=== PATIENT | male | born 1955 | race African-American/Black ===

== ENCOUNTER 2017-01-29 14:18 | Inpatient (IN) ==
[2017-01-29] MEDS ORDERED: LEVOFLOXACIN INJ 500 MG in PREMIX 1 EACH IV STA (14:46)
[2017-01-29] MEDS ORDERED: ALBUTEROL/IPRATROPIUM 3 ML NEB RESP TX STA (14:46)
[2017-01-29] MEDS ORDERED: methylPREDNISolone SOD SUC 125 MG/2 ML VIAL IV STA (14:46)
[2017-01-29] MEDS ORDERED: methylPREDNISolone SOD SUC 125 MG/2 ML VIAL ONE ×2 (14:58→15:01)
[2017-01-29] MEDS ORDERED: LEVOFLOXACIN INJ 100 ML IV ONE (14:58)
[2017-01-29 15:16] LABS: Basophils # 0.1 10*3/uL (0.0-0.2); Basophils % 0.5 % (0.0-0.8); Eosinophils # 0.2 10*3/uL (0.0-0.87); Eosinophils % 1.6 % (0.00-10.9); Hematocrit 37.9 VOL% (42.0-52.0); Hemoglobin 12.3 GM/DL (14.0-18.0); Immature Granulocytes % 0.4 %; Immature Granulocytes Absolute 0.05 #; Lymphocytes # 1.7 10*3/uL (1.4-4.0); Lymphocytes % 13.6 % (21.2-54.2); Mean Corpuscular HGB Conc 32.5 GM/DL (32-36); Mean Corpuscular Hemoglobin 28 PG (27-34); Mean Corpuscular Volume 84.6 FL (87-102); Mean Platelet Volume 12.7 FL (9.6-12.0); Monocytes # 1.8 10*3/uL (0.11-0.8); Neutrophils # 8.4 10*3/uL (1.4-7.4); Neutrophils % 68.9 % (38.7-73.9); Platelet Count 191 T/CUMM (130-400); Red Blood Count 4.48 MC/CUMM (3.8-5.5); Red Cell Distribution Width 13.4 % (9.3-17.3); White Blood Count 12.2 T/CUMM (4-12)
[2017-01-29] MEDS ORDERED: FUROSEMIDE 40 MG/4 ML VIAL IV STA (15:24)
[2017-01-29] MEDS ORDERED: FUROSEMIDE 100 MG/10 ML VIAL ONE (15:30)
--- NOTE | 2017-01-29 15:35 | XRay Report ---
Single view of the chest. Indication: Shortness of breath. Comparison: April 10, 2010. The heart is enlarged, increased from the previous. Large multiseptated bullous area in the right lung apex, essentially stable. Left superior hilar mass, increased in size, now proximally 4 cm. The interstitial markings are prominent, worsened from the previous. There is alveolar infiltrate present now in each lung base, worse on the right. There is a right-sided pleural effusion. Impression: 1. Chronic lung changes. 2. Increasing size of a left suprahilar mass. 3. Superimposed pneumonia at both lung bases, worse on the right, with associated pleural effusion. 4. Interval increase in heart size. PROCEDURE INTERPRETED AT [facility] DEPARTMENT OF RADIOLOGY Final Report Signed by: Dr. Coco Greenwood
[2017-01-29 15:43] LABS: Albumin 3.2 G/DL (3.4-5.0); Bilirubin,Total 1.1 MG/DL (0.2-1.0); Calcium 8.6 MG/DL (8.5-10.1); Magnesium 2.4 MG/DL (1.8-2.4); Osmolality,Calculated 283.3 MOS/KG (273-304); Potassium 2.9 MMOL/L (3.5-5.1); Total Protein 7.9 G/DL (6.4-8.3); Troponin I Only 0.023 NG/ML (0.00-0.045)
[2017-01-29] MEDS ORDERED: POTASSIUM CHLORIDE 20 MEQ TABLET PO STA (16:00)
--- NOTE | 2017-01-29 16:00 | Emergency Department Note ---
IMyra Emily, am scribing for, and in the presence of, Honorio Strauss MD 14:50. Carlos A Garcia Phillip K, MD, personally performed the services described in this documentation, ascribed by Perla Renteria in my presence, and it is both accurate and complete . Arrival - Arrival ED Nursing Triage Note: sob and cough for 5 days. +productive with white sputum. Mode of Arrival: Wheelchair Limitations: No Limitations Source: Patient - History of Present Illness Onset (ago): day(s) Consistency: constant Severity: moderate Severity scale (1-10): 7 Quality: fullness <Honorio Strauss - Last Filed: 01/29/17 16:01> <Sivakumar Mathis - Last Filed: 01/29/17 16:23> - Arrival Chief Complaint: Shortness of Breath Stated Complaint: trouble breathing Time Seen by Provider: 01/29/17 14:31 - History of Present Illness HPI Narrative: Pt is a 61 y/o male who came to ED with c/o SOB and productive cough that has been ongoing for 5 days. Pt has associated sxs of white sputum, fever, chills, diarrhea, orthopnea, MONET, and swelling in lower extremities, but denies chest pain. Pt sees ASSET PROTECTION LEAD at [facility]. PMHx of emphysema - COPD, obtructive sleep apnea. Pt states he stops what he's doing to regain breath, but denies usage of steroids or albuterol at home to relieve SOB. Pt has occasional drink but denies smoking. (Perla Renteria) Pt is a 61 y/o male who came to ED with c/o SOB and productive cough that has been ongoing for 5 days. Pt has associated sxs of white sputum, fever, chills, diarrhea, orthopnea, MONET, and swelling in lower extremities, but denies chest pain. Pt sees ASSET PROTECTION LEAD at [facility] in [place]. PMHx of emphysema - COPD, obtructive sleep apnea. Pt states he stops what he's doing to regain breath, but denies usage of steroids or albuterol at home to relieve SOB. Pt has occasional drink but denies smoking. (Honorio Strauss) Allergies/Adverse Reactions: Allergies Allergy/AdvReac Type Severity Reaction Status Date / Time No Known Allergies Allergy Unverified 01/29/17 14:25 Home Medications: Home Medications Medication Instructions Recorded Confirmed Type Cetirizine HCl [Cetirizine Tab] 10 mg PO DAILY 01/29/17 01/29/17 History Lisinopril 40 mg PO DAILY 01/29/17 01/29/17 History Metoprolol Tartrate Tab [Lopressor 50 mg PO BID 01/29/17 01/29/17 History Tab] Spironolactone 50 mg PO DAILY 01/29/17 01/29/17 History Thiamine HCl 100 mg PO DAILY 01/29/17 01/29/17 History amLODIPine [Norvasc] 10 mg PO DAILY 01/29/17 01/29/17 History Review of System - Review of System 12 point system: reviewed and no additional remarkable complaints except as stated - Review of System Constitutional: Present: chills, fever Head/Ears/Nose/Throat: Absent: nasal drainage, sore throat Respiratory: Present: cough (productive; white sputum), respiratory distress ( grunting), wheezing Cardiovascular: Present: dyspnea on exertion, orthopnea, edema. Absent: chest pain, syncope Gastrointestinal: Present: diarrhea. Absent: abdominal pain, nausea, vomiting Genitourinary male: Absent: dysuria Musculoskeletal: Absent: arm pain, back pain, leg pain, neck pain Skin: Absent: rash Neurological: Absent: headache Psychiatric: Absent: anxiety <Honorio Strauss - Last Filed: 01/29/17 16:01> Medical,Surgical,& Family Hx - Medical History Cardio: History of: Hypertension Respiratory: History of: COPD, Obstructive Sleep Apnea - Social History Smoking Status: Never smoker Frequency of Alcohol Use: None Type of Drug Use: None <Honorio Strauss - Last Filed: 01/29/17 16:01> Exam - General General appearance: alert, in distress (secondary to SOB) - Head Head exam: Present: atraumatic, normocephalic - Eye Eye exam: Present: PERRL, EOMI - ENT ENT exam: Present: mucous membranes moist. Absent: mucous membranes dry - Neck Neck exam: Present: full ROM, trachea midline. Absent: tenderness - Chest Chest inspection: Present: symmetric chest wall rise. Absent: tenderness - Respiratory Respiratory exam: Present: accessory muscle use (grunts taking each breath), rales (on left), respiratory distress, wheezes (diffuse expiratory wheezing in all mcdonald). Absent: normal lung sounds bilaterally - Cardiovascular Cardiovascular exam: Present: tachycardia, normal heart sounds - Abdominal Exam Abdominal exam: Present: soft. Absent: tenderness - Extremities Exam Extremities exam: Present: full ROM, pedal edema (+2 pitting bilaterally). Absent: tenderness - Back Exam Back exam: Present: full ROM. Absent: tenderness - Neurological Exam Neurological exam: Present: alert, oriented X3, CN II-XII intact. Absent: motor sensory deficit - Psychiatric Psychiatric exam: Present: normal affect, normal mood - Skin Skin exam: Present: warm, dry <Honorio Strauss - Last Filed: 01/29/17 16:01> Vital Signs: Vital Signs Temperature 99.2 F 01/29/17 15:24 Pulse Rate 99 H 01/29/17 15:30 Respiratory Rate 25 H 01/29/17 15:30 Blood Pressure 171/137 01/29/17 15:24 O2 Sat by Pulse Oximetry 97 01/29/17 15:30 Course <Honorio Strauss - Last Filed: 01/29/17 16:01> - Consultations Time: 16:15 <Sivakumar Mathis - Last Filed: 01/29/17 16:23> - Consultations Consultation #1: The patient will be admitted to the hospitalist service. (Sivakumar Mathis) Results - Labs CBC & BMP: 01/29/17 15:00 01/29/17 15:00 Lab Results: I have reviewed the patients labs - Diagnostic Findings Procedure: Chest x-ray: report reviewed by me (1. Chronic lung changes. 2. Increasing size of a left suprahilar mass. 3. Superimposed PNA at both lung bases, worse on the right, with associated pleural effusion. 4. Interval increase in heart size.) <Honorio Strauss - Last Filed: 01/29/17 16:01> - Labs CBC & BMP: 01/29/17 15:00 01/29/17 15:00 <Sivakumar Mathis - Last Filed: 01/29/17 16:23> - Labs Labs: Laboratory Tests 01/29/17 15:00 WBC 12.2 H RBC 4.48 Hgb 12.3 L Hct 37.9 L MCV 84.6 L Plt Count 191 MPV 12.7 H Lymph % (Auto) 13.6 L [place] % (Auto) 15.0 H Neut # (Auto) 8.4 H [place] # (Auto) 1.8 H Laboratory Tests 01/29/17 15:00 Sodium 141 Potassium 2.9 L Chloride 100 Carbon Dioxide 27 Anion Gap 16.9 H BUN 22 H Creatinine 1.70 H Glucose 107 H Total Bilirubin 1.10 H AST 38 H Albumin 3.2 L Globulin 4.7 H Albumin/Globulin Ratio 0.6 L (Perla Renteria) Laboratory Tests 01/29/17 15:00 WBC 12.2 H RBC 4.48 Hgb 12.3 L Hct 37.9 L MCV 84.6 L Plt Count 191 MPV 12.7 H Lymph % (Auto) 13.6 L [place] % (Auto) 15.0 H Neut # (Auto) 8.4 H [place] # (Auto) 1.8 H Laboratory Tests 01/29/17 15:00 Sodium 141 Potassium 2.9 L Chloride 100 Carbon Dioxide 27 Anion Gap 16.9 H BUN 22 H Creatinine 1.70 H Glucose 107 H Total Bilirubin 1.10 H AST 38 H Albumin 3.2 L Globulin 4.7 H Albumin/Globulin Ratio 0.6 L (Honorio Strauss) Disposition Case discussed with: patient <Honorio Strauss - Last Filed: 01/29/17 16:01> Time of Disposition: 16:15 <Sivakumar Mathis - Last Filed: 01/29/17 16:23> Clinical Impression: Acute exacerbation of chronic obstructive airways disease, Pneumonia, Possible congestive heart failure, Hypokalemia Disposition: Still a Patient Condition: Guarded
[2017-01-29] MEDS ORDERED: POTASSIUM CHLORIDE 20 MEQ TABLET PO ONE ×2 (16:13→17:00)
--- NOTE | 2017-01-29 17:19 | Hospitalist History & Physical ---
<Florence Watson - Last Filed: 01/29/17 17:14> Assessment and Plan (1) Acute exacerbation of chronic obstructive airways disease Status: Acute Assessment and plan: Admit to ICU for closer monitoring. IV steroids and breathing treatments ordered. Stat abgs. Current Visit: Yes (2) Hypokalemia Status: Acute Assessment and plan: K is 2.9. Potassium replacement. Recheck in am. Cardiac monitoring. Current Visit: Yes (3) Pneumonia Status: Acute Assessment and plan: CXR showed superimposed pneumonia. CXR also showed left superhilar mass. Follow up CT ordered. Pulm consult for assistance in care. IV antibiotics (Levaquin and Zosyn) ordered. Will continue to monitor. Current Visit: Yes History of Present Illness Chief complaint: shortness of breath History of present illness: Mr. Noe is a 61 year old black male with a history of htn, copd, BPH, and TYSON that presents to the ED today with complaints of shortness of breath and cough. Pt. states that this has been going on for the past 5 days. Pt. also reports fever, chills, dizziness, and swelling in lower extremities. Pt. denies chest pain. Pt. states that he has become significantly weaker with these symptoms. He says he sometimes has to lean over a chair to catch his breath. Pt. states that he is a former smoker. He stopped almost 30 yrs ago after having an XR performed that showed he had "bad lungs". Pt. 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 He is seen by SEPIDEH Oswald at the [facility]. Pt. is visibly short of breath in the ED and is in mild distress. CXR showed superimposed pneumonia in addition to a left hiliar mass. Pt. is also found to be hypokalemic at 2.9. Pt's case has been discussed with Dr. Boucher and he will be admitted to the hospitalist service and placed in the ICU for close monitoring. Home Medications Medication Instructions Recorded Confirmed Type Cetirizine HCl [Cetirizine Tab] 10 mg PO DAILY 01/29/17 01/29/17 History Lisinopril 40 mg PO DAILY 01/29/17 01/29/17 History Metoprolol Tartrate Tab [Lopressor 50 mg PO BID 01/29/17 01/29/17 History Tab] Spironolactone 50 mg PO DAILY 01/29/17 01/29/17 History Thiamine HCl 100 mg PO DAILY 01/29/17 01/29/17 History amLODIPine [Norvasc] 10 mg PO DAILY 01/29/17 01/29/17 History Allergies Allergy/AdvReac Type Severity Reaction Status Date / Time No Known Allergies Allergy Verified 01/29/17 17:28 Medical,Surgical,& Family Hx - Medical History Cardio: History of: Hypertension Respiratory: History of: COPD, Obstructive Sleep Apnea Genitourinary: History of: Prostate Problems - Family History Family History: Reports;: Family Hypertension - Social History Smoking Status: Former smoker Frequency of Alcohol Use: None Type of Drug Use: None Marital Status: Single Lives With:: Alone Functional capacity: uses cane/walker - Constitutional Constitutional: Present: chills, fever(s), weakness - EENT Eyes: Absent: blurry vision, loss of vision Ears: Absent: decreased hearing, ear discharge - Cardiovascular Cardiovascular: Present: dyspnea on exertion, edema, lightheadedness. Absent: chest pain at rest - Respiratory Respiratory: Present: cough (productive), dyspnea on exertion - Gastrointestinal Gastrointestinal: Present: nausea, odynophagia. Absent: abdominal pain, vomiting - Genitourinary Genitourinary: Present: urinary frequency, urinary incontinence - Musculoskeletal Musculoskeletal: Present: limited range of motion - Neurological Neurological: Present: dizziness. Absent: confusion, numbness, tremor(s) - Psychiatric Psychiatric: Absent: confusion - Endocrine Endocrine: Present: fatigue Exam - Constitutional Vitals: Period Temp Pulse Resp BP Sys/Melendez Pulse Ox Last 24 Hr 99.2 F-99.2 F 99-112 24-40 171-171/137-137 77-99 General appearance: no acute distress, morbidly obese - Head Head exam: Present: normal inspection, normocephalic - Eye Eye exam: Present: EOMI. Absent: scleral icterus Pupils: Present: TALAT. Absent: fixed - Respiratory Respiratory exam: Present: decreased breath sounds, wheezes (inspiratory) - Cardiovascular Cardiovascular exam: Present: regular rate and rhythm - GI/Abdominal GI/Abdominal exam: Present: normal bowel sounds, soft. Absent: tenderness - Extremities Exam Extremities exam: Present: normal capillary refill, full ROM, edema (BLE) - Neurological Exam Neurological exam: Present: alert, oriented X3 - Psychiatric Psychiatric exam: Present: normal affect, normal mood - Skin Skin exam: Present: normal color, warm, dry Results - Labs CBC & BMP: 01/29/17 15:00 01/29/17 15:00 Lab Results: I have reviewed the past 24 hour labs <Juliette Boucher Cosme - Last Filed: 01/29/17 18:10> Assessment and Plan (1) Bilateral pneumonia Status: Acute Assessment and plan: zosyn and levaquin, duonebs every 4 hours, Dr. Stinson consulted, monitor in ICU at risk for wearing out Current Visit: Yes (2) TYSON (obstructive sleep apnea) Status: Acute Assessment and plan: ABG shows no retention, Dr. lester to see Current Visit: Yes (3) Bilateral edema of lower extremity Status: Acute Assessment and plan: BNP normal, echo and venous dopplers Current Visit: Yes (4) Mass of upper lobe of left lung Status: Acute Assessment and plan: consider ct when breathing improves. Current Visit: Yes (5) Acute exacerbation of chronic obstructive airways disease Status: Acute Assessment and plan: steroids, duonebs and abx Current Visit: Yes (6) Hypokalemia Status: Acute Current Visit: Yes History of Present Illness History of present illness: Mr. Noe is a 61 year old male seen and examined. History and physical reviewed and edited. Cannot finish his sentences due to SOB. Potassium low in ER and has bilateral LE pitting edema. BNP normal. History and physical reviewed and edited. Asked Dr. Stinson to see him. Placed in ICU for close observation. Medical,Surgical,& Family Hx - Surgical History Additional Surgical History: none - EENT Nose, mouth and throat: Absent: headache(s) - Respiratory Respiratory: Present: dyspnea, snoring, change in phlegm color. Absent: wheezing - Genitourinary Genitourinary: Present: dysuria. Absent: difficulty urinating - Musculoskeletal Musculoskeletal: Present: arthralgias, limited range of motion - Psychiatric Psychiatric: Present: depression - Endocrine Endocrine: Present: heat intolerance - Hematologic/Lymphatic Hematologic/Lymphatic: Absent: easy bleeding, easy bruising Exam - Constitutional Vitals: Period Temp Pulse Resp BP Sys/Melendez Pulse Ox Last 24 Hr 99.2 F-99.2 F 90-112 17-40 140-171/85-137 77-99 - Eye Pupils: Present: normal accommodation - ENT ENT exam: Present: normal exam, normal external ear exam - Neck Neck exam: Absent: lymphadenopathy, thyromegaly - Neurological Exam Neurological exam: Present: CN II-XII intact, reflexes normal. Absent: motor sensory deficit Results - Labs CBC & BMP: 01/29/17 15:00 01/29/17 15:00 - EKG EKG shows: sinus rhythm (IVCD with poor R wave progression ) - Diagnostic Findings Procedure: Chest x-ray: report reviewed by me (bilateral pneumonia)
[2017-01-29 17:38] LABS: ABG Base Excess 4.1 MMOL/L (-2.5-2.5); ABG HCO3 29.2 MMOL/L (20-26); ABG Oxygen Saturation 84.8 % (95-100); ABG PCO2 45.6 MM HG (35-48); ABG PH 7.424 (7.35-7.45); ABG PO2 44.7 MM HG (80-95); ABG TCO2 30.6 MMOL/L (23-27); Allen Test Positive
[2017-01-29] MEDS ORDERED: LACTULOSE 20 GM/30 ML UDCUP PO PRN (18:13)
[2017-01-29] MEDS ORDERED: ZALEPLON 5 MG CAPSULE PO PRN (18:13)
[2017-01-29] MEDS ORDERED: ACETAMINOPHEN 325 MG TABLET PO PRN (18:13)
[2017-01-29] MEDS ORDERED: ONDANSETRON 4 MG/2 ML VIAL IV PRN (18:13)
--- NOTE | 2017-01-29 18:22 | Pulmonology Consult Note ---
Assessment and Plan (1) Acute exacerbation of chronic obstructive airways disease Status: Acute Assessment and plan: Agree with corticosteroids, bronchodilators, broad-spectrum antibiotics. He relates that he was on oxygen at home but the oxygen machine stopped working about 6 months ago so he has not been using it. Current Visit: Yes (2) Hypokalemia Status: Acute Assessment and plan: Replacing potassium. It was 2.9. Current Visit: Yes (3) Bilateral pneumonia Status: Acute Assessment and plan: Clearly has bilateral lower lobe bronchopneumonia. Agree with broad-spectrum antibiotics given that he has COPD. Current Visit: Yes (4) TYSON (obstructive sleep apnea) Status: Acute Assessment and plan: By history but is not on any devices Current Visit: Yes (5) Bilateral edema of lower extremity Status: Acute Assessment and plan: Chronic lower extremity edema. Calves are nontender. History of frostbite on his feet. He may be having some right-sided heart failure. His BNP is not elevated. Doubt if he has left ventricular failure. Current Visit: Yes (6) Mass of upper lobe of left lung Status: Acute Assessment and plan: This looks to be little changed from 7 years ago. I will get a CT to evaluate his lungs. He does not want to have a bronchoscope as apparently he had a difficult time with that about 15 years ago at [facility]. We need those records. Current Visit: Yes History of Present Illness Chief complaint: Cough fever shortness of breath History of present illness: Mr. Noe is a 61 year old male who was diagnosed as COPD about 15 years ago and stopped smoking at that time. Apparently he was evaluated 15 years ago for a spot on his lung. He says that they had a difficult time doing the bronchoscope on him and this procedure was discontinued. He was told he needed to stop smoking and he did. He is followed at [facility]. He smokes 2 packs of cigarettes a day up until 15 years ago. He also had an evaluation at the [facility] at a subsequent time but does not remember the details. He is followed at the local [facility] in [facility] [place]. 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 He had the acute onset of cough congestion and fever about 3 days ago. Normally it gets better if he rides it out but it did not this time he came to emergency room and was admitted. He denies hemoptysis. He is not having any pleuritic pain. Home Medications Medication Instructions Recorded Confirmed Type Cetirizine HCl [Cetirizine Tab] 10 mg PO DAILY 01/29/17 01/29/17 History Lisinopril 40 mg PO DAILY 01/29/17 01/29/17 History Metoprolol Tartrate Tab [Lopressor 50 mg PO BID 01/29/17 01/29/17 History Tab] Spironolactone 50 mg PO DAILY 01/29/17 01/29/17 History Thiamine HCl 100 mg PO DAILY 01/29/17 01/29/17 History amLODIPine [Norvasc] 10 mg PO DAILY 01/29/17 01/29/17 History Allergies Allergy/AdvReac Type Severity Reaction Status Date / Time No Known Allergies Allergy Verified 01/29/17 17:28 12 point system: reviewed and no additional remarkable complaints except as stated - Constitutional Constitutional: Present: chills, fever(s) - Cardiovascular Cardiovascular: Present: dyspnea, dyspnea on exertion, edema - Respiratory Respiratory: Present: cough, dyspnea, dyspnea on exertion, wheezing, change in phlegm color - Neurological Neurological: Present: dizziness - Endocrine Endocrine: Present: fatigue Exam (Pulmonay) H&P - Constitutional Vitals: Period Temp Pulse Resp BP Sys/Melendez Pulse Ox Last 24 Hr 99.2 F-99.2 F 90-112 17-40 126-194/85-137 77-99 Exam: Temperature 99.2. Pulse around 100. O2 sat 93% on 2 L. Blood pressure 126/ 92. He had a markedly elevated blood pressure in the ER at 170/130. HEENT: Pupils react to light. Throat is clear. Neck is supple no bruits no lymphadenopathy. Thyroid normal size. Trachea midline. Chest reveals bilateral expiratory wheezes and scattered rhonchi. Also some bibasilar crackles. Heart rate is slightly fast no murmurs normal rhythm. Abdomen is soft nontender. No masses. Bowel sounds present. Extremities no clubbing or cyanosis. He does have some chronic edema in both of his ankles. Calves are nontender Medical,Surgical,& Family Hx - Medical History Cardio: History of: Hypertension Endocrine: History of: Diabetes Mellitus (NIDDM) Respiratory: History of: COPD, Obstructive Sleep Apnea Genitourinary: History of: Prostate Problems - Surgical History Neurologic Surgeries: Patient denies: Neurologic Surgery - Family History Family History: Reports;: Family Hypertension - Social History Smoking Status: Former smoker Frequency of Alcohol Use: None Type of Drug Use: None Results - Labs CBC & BMP: 01/29/17 15:00 01/29/17 15:00 Lab Results: I have reviewed the past 24 hour labs - Diagnostic Findings Procedure: Chest x-ray: image reviewed by me (Bilateral lower lobe infiltrates. Question small pleural effusions. Rounded lesion left upper lobe that actually is unchanged since an x-ray of 2009 showing a rounded lesion there.)
[2017-01-29 18:29] LABS: ABG Base Excess 3.8 MMOL/L (-2.5-2.5); ABG HCO3 28.4 MMOL/L (20-26); ABG Oxygen Saturation 86.4 % (95-100); ABG PCO2 42.6 MM HG (35-48); ABG PH 7.442 (7.35-7.45); ABG PO2 46.9 MM HG (80-95); ABG TCO2 29.7 MMOL/L (23-27); Allen Test Positive
[2017-01-29] MEDS: PANTOPRAZOLE 40 MG TABLET PO SCH (18:34)
[2017-01-29 18:41] LABS: Magnesium 2.3 MG/DL (1.8-2.4); Thyroid Stimulating Hormone 0.626 uIU/ml (0.358-3.74)
[2017-01-29] MEDS: PIPERACILLIN/TAZOBACTAM 3,375 MG in SODIUM CHLORIDE 0.9% 100 ML IV SCH (18:56)
[2017-01-29 19:10] LABS: Apearance,Urine CLEAR (Clear); Bilirubin,Urine Negative (Negative); Blood, Urine Small mg/dL (Negative); Glucose,Urine (UA) Negative (Negative); Hyaline Casts,Urine 1 /LPF (0-3); Ketones,Urine 5 mg/dL (Negative); Nitrite,Urine Negative (Negative); Protein,Urine Negative; RBC,Urine 2 /HPF (0-4); Squamous Epithelial Cell,Urine Occasional /HPF (0-10); Urine Color Yellow (Yellow); Urine Specific Gravity 1.005 (1.001-1.035); Urine Urobilinogen < 2.0 EU/DL (0.2-1.0); WBC,Urine 4 /HPF (0-6)
--- NOTE | 2017-01-29 19:14 | Ultrasound Report ---
Bilateral lower extremity venous Doppler with gilmore scale, Spectral Doppler and color-flow analysis performed and interpreted. Indication: Shortness of breath Scanning over both common femoral veins, superficial femoral veins, greater saphenous veins and popliteal veins demonstrates normal compressibility, color flow, and augmentation. Impression: No evidence of DVT seen in either lower extremity. PROCEDURE INTERPRETED AT [facility] DEPARTMENT OF RADIOLOGY Final Report Signed by: Dr. Coco Greenwood
[2017-01-29] MEDS: ALBUTEROL/IPRATROPIUM 3 ML NEB RESP TX SCH (19:57)
[2017-01-29] MEDS: POTASSIUM CHLORIDE 20 MEQ TABLET PO SCH (20:12)
[2017-01-29] MEDS: ENOXAPARIN 40 MG/0.4 ML SYRINGE SUBCUT SCH (20:12)
[2017-01-29] MEDS: CARVEDILOL 6.25 MG TABLET PO SCH (20:12)
[2017-01-29] MEDS: methylPREDNISolone SOD SUC 40 MG/1 ML VIAL IV SCH (23:20)
[2017-01-30] MEDS: ALBUTEROL/IPRATROPIUM 3 ML NEB RESP TX SCH ×4 (00:53→19:20)
[2017-01-30 03:29] LABS: Basophils % 0.1 % (0.0-0.8); Hematocrit 39.3 VOL% (42.0-52.0); Hemoglobin 12.5 GM/DL (14.0-18.0); Immature Granulocytes % 0.5 %; Immature Granulocytes Absolute 0.04 #; Lymphocytes # 1.1 10*3/uL (1.4-4.0); Lymphocytes % 14.5 % (21.2-54.2); Mean Corpuscular HGB Conc 31.8 GM/DL (32-36); Mean Corpuscular Hemoglobin 27 PG (27-34); Mean Corpuscular Volume 85.8 FL (87-102); Mean Platelet Volume 13.2 FL (9.6-12.0); Monocytes # 0.3 10*3/uL (0.11-0.8); Monocytes % 3.7 % (1.7-12.7); Neutrophils # 6.2 10*3/uL (1.4-7.4); Neutrophils % 81.2 % (38.7-73.9); Platelet Count 168 T/CUMM (130-400); Red Blood Count 4.58 MC/CUMM (3.8-5.5); Red Cell Distribution Width 13.6 % (9.3-17.3); White Blood Count 7.6 T/CUMM (4-12)
[2017-01-30 03:56] LABS: Calcium 8.6 MG/DL (8.5-10.1); Osmolality,Calculated 287.4 MOS/KG (273-304)
[2017-01-30] MEDS: PIPERACILLIN/TAZOBACTAM 3,375 MG in SODIUM CHLORIDE 0.9% 100 ML IV SCH ×3 (04:24→21:50)
--- NOTE | 2017-01-30 06:52 | CT Report ---
CT chest wo con Indication: Diffuse bilateral infiltrate, left upper lobe nodule. Comparison: None. Technique: CT chest was performed without administration of intravenous contrast. In addition to multiple contiguous axial source images, coronal and sagittal MPR series were provided. The CT examination was performed using one or more of the following dose reduction techniques: Automatic exposure control, adjustment of the mA and kV according to patient size, use of acute or iterative reconstruction techniques. Findings: Severe parenchymal scarring and bullous emphysematous disease is noted bilaterally. The pulmonary artery is enlarged with multiple intralobar pulmonary artery segments demonstrating enlargement. The main pulmonary artery is 5 cm in transverse dimension. The lung parenchyma bilaterally demonstrates areas of groundglass attenuation with air space attenuation noted involving the posterior aspect of the right lung and right lower lobe as well as the anterior aspect of the left upper lobe. Additional areas of airspace attenuation and groundglass attenuation somewhat less prevalent present within the left lower lobe. Paraseptal emphysematous changes and/or fibrotic changes are noted within the posterior right lower lobe. There is a cavity posteriorly within the right chest with air-fluid level and may reflect infected bleb. Small right sided pleural effusion is present. Heart size is grossly normal. There is fusiform enlargement of the aortic root. This measures 4.6 cm. No coronary artery calcifications are present. No adenopathy is clearly demonstrated within the axilla, the hilar structures are not well visualized secondary to lack of intravenous contrast. Multiple renal cysts are suggested. Enlarged celiac lymph nodes are present significance of which are uncertain. Bony structures demonstrate no acute findings. Soft tissues and musculature of the chest wall demonstrate no acute findings. Impression: 1. Extensive bilateral parenchymal scarring and bullous emphysematous disease is demonstrated. One of the cavities within the posterior right chest has a thickened appearing wall and air-fluid level suggesting infected bulla. 2. Extensive bilateral airspace attenuation/consolidation is noted bilaterally most prevalent within the right lower lobe, but additionally noted within the left upper lobe/lingula. 3. Enlargement of the main pulmonary artery as well as multiple branches of the intralobar pulmonary arterial segments is compatible with pulmonary arterial hypertension. 4. Small right-sided pleural effusion. 01/30/2017 6:45 AM PROCEDURE INTERPRETED AT [facility] DEPARTMENT OF RADIOLOGY Final Report Signed by: Dr. Casper Mathis
--- NOTE | 2017-01-30 07:26 | Pulmonology Progress Note ---
Pulmonary - PN: Subj Interval history: This is a 61-year-old black male but has COPD. He came in with an acute pneumonia with 3 days of chills and increased sputum production and cough. His CT scan shows a fairly extensive right lower lobe pneumonia. The left upper lobe shows an area that may be consolidation but I suspect it is scarring as it was present there radiographically 7 years ago. He has had previous evaluation for this that apparently was nondiagnostic. He also has a good bit of bullous emphysema and has an infected bulla in his R upper lobe. Exam (Progress Note) - Constitutional Vitals: Period Temp Pulse Resp BP Sys/Melendez Pulse Ox Last 24 Hr 98 F-99.2 F 59-112 12-40 105-194/80-137 77-100 Exam: Is alert and calm. Vital signs normal. O2 sat measuring 97% on 3 L. Pupils react to light throat is clear. Neck is supple no bruits. Chest reveals some rhonchi. Minimal expiratory wheezes on the left side. He does have rales at the right base. Heart normal rate rhythm no murmurs. Abdomen soft nontender no masses. Extremities she has chronic nonpitting edema in both lower extremities. Calves are nontender. Results - Labs CBC & BMP: 01/30/17 03:07 01/30/17 03:07 Lab Results: I have reviewed the past 24 hour labs - Diagnostic Findings Procedure: Chest x-ray: image reviewed by me (Pneumonia primarily in the right lower lobe. Bullous emphysema. Chronic left upper lobe mass that is likely old scarring.), CT - chest: image reviewed by me (Right lower lobe pneumonia bullous emphysema with infected bulla right upper lobe. Left upper lobe lesion which appears to be stable from previous.), Ultrasound: report reviewed by me ( Venous Dopplers negative.) Assessment and Plan (1) Acute exacerbation of chronic obstructive airways disease Status: Acute Assessment and plan: Agree with corticosteroids, bronchodilators, broad-spectrum antibiotics. He relates that he was on oxygen at home but the oxygen machine stopped working about 6 months ago so he has not been using it. 01/30/2017 continuing 3 L nasal oxygen. Also on steroids bronchodilators and antibiotics. His PO2 measured in the 40s on 2 L twice. I am still concerned that that may be venous however we have gone up to 3 L and oxygen saturation 97 % should be acceptable. He is not drowsy. I do not think he is retaining CO2 Current Visit: Yes (2) Hypokalemia Status: Acute Assessment and plan: Replacing potassium. It was 2.9. 01/30/2017 this is been replaced with potassium 4.0 today Current Visit: Yes (3) Bilateral pneumonia Status: Acute Assessment and plan: Clearly has bilateral lower lobe bronchopneumonia. Agree with broad-spectrum antibiotics given that he has COPD. 01/30/2017 worse in the right lower lobe. Broad-spectrum antibiotics. Likely to be a gram-negative organism. Cultures pending Current Visit: Yes (4) TYSON (obstructive sleep apnea) Status: Acute Assessment and plan: By history but is not on any devices 01/30/2017 may want to have sleep services to see Current Visit: Yes (5) Bilateral edema of lower extremity Status: Acute Assessment and plan: Chronic lower extremity edema. Calves are nontender. History of frostbite on his feet. He may be having some right-sided heart failure. His BNP is not elevated. Doubt if he has left ventricular failure. 01/30/2017 likely due to chronic right heart failure from his COPD. Does have history of frostbite. Current Visit: Yes (6) Mass of upper lobe of left lung Status: Acute Assessment and plan: This looks to be little changed from 7 years ago. I will get a CT to evaluate his lungs. He does not want to have a bronchoscope as apparently he had a difficult time with that about 15 years ago at [facility]. We need those records. 01/30/2017 radiographically this appears the same as it did in 2009. That is on plain chest x-ray. Current Visit: Yes
--- NOTE | 2017-01-30 07:56 | EKG Report ---
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
[2017-01-30] MEDS: methylPREDNISolone SOD SUC 40 MG/1 ML VIAL IV SCH ×3 (08:48→23:34)
[2017-01-30] MEDS: CARVEDILOL 6.25 MG TABLET PO SCH ×2 (08:53→16:04)
[2017-01-30] MEDS: POTASSIUM CHLORIDE 20 MEQ TABLET PO SCH (08:53)
[2017-01-30] MEDS: THIAMINE 100 MG TABLET PO SCH (08:53)
[2017-01-30] MEDS: amLODIPine 10 MG TABLET PO SCH (08:53)
[2017-01-30] MEDS: CETIRIZINE 10 MG TABLET PO SCH (08:53)
[2017-01-30] MEDS: PANTOPRAZOLE 40 MG TABLET PO SCH (08:53)
[2017-01-30] MEDS ORDERED: FUROSEMIDE 40 MG/4 ML VIAL IV ONE (09:00)
--- NOTE | 2017-01-30 09:14 | Hospitalist Progress Note ---
Assessment and Plan (1) Acute exacerbation of chronic obstructive airways disease Status: Acute Assessment and plan: Admit to ICU for closer monitoring. IV steroids and breathing treatments ordered. Stat abgs. 01/30 Pt. stable today can be transferred to medical floor. Continue IV steroids, IV antibiotics, and breathing treatments. Supplemental O2 as needed. Pulmonary following. Current Visit: Yes (2) Hypokalemia Status: Acute Assessment and plan: K is 2.9. Potassium replacement. Recheck in am. Cardiac monitoring. 01/30 K is 4 today. Current Visit: Yes (3) Pneumonia Status: Acute Assessment and plan: CXR showed superimposed pneumonia. CXR also showed left superhilar mass. Follow up CT ordered. Pulm consult for assistance in care. IV antibiotics (Levaquin and Zosyn) ordered. Will continue to monitor. 01/30 CT results reviewed. Pulmonary has evaluated patient. Continue IV antibiotics Current Visit: Yes Hospitalist: Subjective Interval history: Mr. Noe is a 61 yr old male patient that presented with shortness of breath being treated for COPD exacerbation and pneumonia. Pt. was seen and examined this morning. Pt was sitting on side of the bed with IV antibiotic infusing. No distress noted. Pt. wearing supplemental O2. States he feels better today. Pt's labs and vital signs are stable this morning. Pt. can be transferred to med surg bed today. Pulmonary following. We will continue current treatment. Exam - Constitutional Vitals: Period Temp Pulse Resp BP Sys/Melendez Pulse Ox Last 24 Hr 98 F-99.2 F 59-112 12-40 105-194/80-137 77-100 General appearance: no acute distress, over weight - Head Head exam: Present: normal inspection, normocephalic - Eye Eye exam: Present: EOMI. Absent: scleral icterus Pupils: Present: TALAT. Absent: fixed - Neck Neck exam: Present: normal inspection - Respiratory Respiratory exam: Present: decreased breath sounds (bilateral lung bases), wheezes - Cardiovascular Cardiovascular exam: Present: regular rate and rhythm - Extremities Exam Extremities exam: Present: normal capillary refill, full ROM, edema - Back Exam Back exam: Present: normal inspection - Neurological Exam Neurological exam: Present: alert, oriented X3 - Psychiatric Psychiatric exam: Present: normal affect, normal mood - Skin Skin exam: Present: normal color, warm, dry Results - Labs CBC & BMP: 01/30/17 03:07 01/30/17 03:07 Lab Results: I have reviewed the past 24 hour labs
--- NOTE | 2017-01-30 12:55 | Sleep Medicine Consult ---
Assessment and Plan (1) TYSON (obstructive sleep apnea) Status: Acute Assessment and plan: This patient may need re-titration of CPAP. We will get an auto titration CPAP machine for him while hospitalized. I had like for him to bring his machine and so we can download his equipment and ascertain his prescribe CPAP pressure and compliance data. Current Visit: Yes History of Present Illness Chief complaint: Obstructive sleep apnea History of present illness: Mr. Noe is a 61 year old male diagnosed in the past with severe obstructive sleep apnea by his report. He is on CPAP therapy and compliant with CPAP by his report. He states that he does not miss sleeping with his CPAP but did not bring his machine with him to this hospitalization. He states that he was diagnosed about 10 years ago at the [facility]. He gets his supplies and equipment through the [facility]. He reports no issues or problems. However, he is been told that recently he has been snoring around his CPAP machine. He was originally admitted to the intensive care unit with COPD exacerbation and pneumonia. He has been moved to a nonmonitored bed today. He has a stop bang score of 7 and an Deshler sleepiness score of 8. Home Medications Medication Instructions Recorded Confirmed Type Cetirizine HCl [Cetirizine Tab] 10 mg PO DAILY 01/29/17 01/29/17 History Lisinopril 40 mg PO DAILY 01/29/17 01/29/17 History Metoprolol Tartrate Tab [Lopressor 50 mg PO BID 01/29/17 01/29/17 History Tab] Spironolactone 50 mg PO DAILY 01/29/17 01/29/17 History Thiamine HCl 100 mg PO DAILY 01/29/17 01/29/17 History amLODIPine [Norvasc] 10 mg PO DAILY 01/29/17 01/29/17 History Allergies Allergy/AdvReac Type Severity Reaction Status Date / Time No Known Allergies Allergy Verified 01/29/17 17:28 Review of systems: Otherwise unremarkable from a sleep medicine standpoint. Exam (Pulmonay) H&P - Constitutional Vitals: Period Temp Pulse Resp BP Sys/Melendez Pulse Ox Last 24 Hr 97.4 F-99.2 F 59-112 12-40 105-194/80-137 77-100 Exam: He is alert and responsive in no acute distress. Pupils equal round reactive to light and accommodation. Extraocular movements intact. Oropharynx with a class III Mallampati exam. Neck is supple without adenopathy or thyromegaly. No supraclavicular adenopathy is noted. Chest with symmetrical breath sounds without focal wheeze or rhonchi. Cardiac exam reveals a regular rhythm without murmur or gallop. Abdomen obese nontender without palpable hepatosplenomegaly or mass. Extremities are without clubbing, cyanosis, or edema. Neurologically , he is grossly intact. He moves all extremities with good strength. He answers questions appropriately. Medical,Surgical,& Family Hx - Medical History Cardio: History of: Hypertension Endocrine: History of: Diabetes Mellitus (NIDDM) Respiratory: History of: COPD, Obstructive Sleep Apnea Genitourinary: History of: Prostate Problems - Surgical History Neurologic Surgeries: Patient denies: Neurologic Surgery - Family History Family History: Reports;: Family Hypertension - Social History Smoking Status: Former smoker Frequency of Alcohol Use: None Type of Drug Use: None Results - Labs CBC & BMP: 01/30/17 03:07 01/30/17 03:07 Lab Results: I have reviewed the past 24 hour labs Labs: TSH was within normal limits. PCO2 on blood gases was normal.
--- NOTE | 2017-01-30 15:31 | ECHO Report ---
Guerrero Noe Exam Date: 01/30/2017 07:28 Referring Physician: Technologist: gerard Castelan ARMARY LOUS, RVT Age: 61 Ht (in): 72 Wt (lb): 386 Gender: M Exam Location: [facility] Echo Indications: Shortness of breath, Essential (primary) hypertension, Cough, Other fatigue, TYSON, Pneumonia, Hypokalemia, Acute exacerbation of COPD BP: 158 / 90 HR: 73 Rhythm: Sinus Technical Quality: IMPRESSIONS Normal left ventricular cavity size. Mild concentric hypertrophy. There is abnormal septal motion, with normal systolic thickening, consistent with RV pressure overload. Estimated left ventricular ejection fraction 55%. Grade 2 diastolic dysfunction. Mild biatrial enlargement. Mild mitral regurgitation. Aortic valve sclerosis without stenosis. Mild aortic valve regurgitation. Severe pulmonary hypertension. MEASUREMENTS (Male / Female) Normal Values 2D ECHO LV Diastolic Diameter PLAX 4.5 cm 4.2 - 5.9 / 3.9 - 5.3 cm LV Systolic Diameter PLAX 2.5 cm LV Fractional Shortening PLAX 44.3 % IVS Diastolic Thickness 2.0 cm 0.6 - 1.0 / 0.6 - 0.9 cm LVPW Diastolic Thickness 1.6 cm 0.6 - 1.0 / 0.6 - 0.9 cm RV Internal Dim ED PLAX 3.5 cm Aortic Root Diameter 3.8 cm LA Systolic Diameter LX 3.2 cm 3.0 - 4.0 / 2.7 - 3.8 cm DOPPLER TR Peak Velocity 391.0 cm/s TR Peak Gradient 61.2 mmHg FINDINGS Left Ventricle Normal left ventricular cavity size. Mild concentric hypertrophy. There is abnormal septal motion, with normal systolic thickening, consistent with RV pressure overload. Estimated left ventricular ejection fraction 55%. Grade 2 diastolic dysfunction. Right Ventricle The right ventricle is normal in size and function. Right Atrium The right atrium is mildly dilated. Left Atrium The left atrium is mildly dilated. Mitral Valve Morphologically normal mitral valve. Mild mitral valve regurgitation. Aortic Valve Aortic valve sclerosis without stenosis. Mild aortic valve regurgitation. Tricuspid Valve Morphologically normal tricuspid valve. Trace to mild tricuspid valve regurgitation. Tricuspid regurgitation velocities suggest a PAP of 61 mmHg plus RA pressure. Pulmonic Valve Morphologically normal pulmonic valve without significant stenosis. There is no pulmonic regurgitation. Pericardium Normal pericardium without effusion. Aorta Normal ascending aorta dimension. Qasim Duval (Electronically Signed) Final Date: 30 January 2017 15:13
[2017-01-30] MEDS: LEVOFLOXACIN INJ 750 MG in PREMIX 1 EACH IV SCH (15:58)
[2017-01-30] MEDS: ENOXAPARIN 40 MG/0.4 ML SYRINGE SUBCUT SCH (21:50)
[2017-01-31] MEDS: ALBUTEROL/IPRATROPIUM 3 ML NEB RESP TX SCH ×4 (01:30→19:40)
[2017-01-31] MEDS: PIPERACILLIN/TAZOBACTAM 3,375 MG in SODIUM CHLORIDE 0.9% 100 ML IV SCH ×3 (05:00→18:00)
[2017-01-31 05:32] LABS: Basophils % 0.1 % (0.0-0.8); Hematocrit 35.8 VOL% (42.0-52.0); Hemoglobin 11.2 GM/DL (14.0-18.0); Immature Granulocytes % 0.8 %; Lymphocytes # 1.1 10*3/uL (1.4-4.0); Lymphocytes % 9.1 % (21.2-54.2); Mean Corpuscular HGB Conc 31.3 GM/DL (32-36); Mean Corpuscular Hemoglobin 27 PG (27-34); Mean Corpuscular Volume 85.9 FL (87-102); Mean Platelet Volume 12.8 FL (9.6-12.0); Monocytes # 0.8 10*3/uL (0.11-0.8); Monocytes % 6.5 % (1.7-12.7); Neutrophils # 10.1 10*3/uL (1.4-7.4); Neutrophils % 83.5 % (38.7-73.9); Platelet Count 208 T/CUMM (130-400); Red Blood Count 4.17 MC/CUMM (3.8-5.5); Red Cell Distribution Width 13.6 % (9.3-17.3)
[2017-01-31 06:00] LABS: Calcium 8.9 MG/DL (8.5-10.1); Osmolality,Calculated 294.1 MOS/KG (273-304); Potassium 3.5 MMOL/L (3.5-5.1)
[2017-01-31] MEDS: methylPREDNISolone SOD SUC 40 MG/1 ML VIAL IV SCH ×2 (06:14→16:54)
--- NOTE | 2017-01-31 07:27 | Pulmonology Progress Note ---
Pulmonary - PN: Subj Interval history: This is a 61-year-old black male but has COPD. He came in with an acute pneumonia with 3 days of chills and increased sputum production and cough. His CT scan shows a fairly extensive right lower lobe pneumonia. The left upper lobe shows an area that may be consolidation but I suspect it is scarring as it was present there radiographically 7 years ago. He has had previous evaluation for this that apparently was nondiagnostic. He also has a good bit of bullous emphysema and has an infected bulla in his R upper lobe. 01/31/2017 patient is feeling better. Now moved to the [place]. No further fever. He is producing sputum. He used CPAP last night. Tolerated it okay. O2 sats in the upper 90s on 3 L. Continuing empiric antibiotics. Recheck chest x-ray tomorrow. Has severe COPD with superimposed pneumonia. Exam (Progress Note) - Constitutional Vitals: Period Temp Pulse Resp BP Sys/Melendez Pulse Ox Last 24 Hr 96.2 F-97.9 F 74-96 16-24 140-149/89-99 92-98 Exam: Is alert and calm. Vital signs normal. O2 sat measuring 97% on 3 L. Pupils react to light throat is clear. Neck is supple no bruits. Chest reveals some rhonchi. Minimal expiratory wheezes on the left side. He does have rales at the right base. Heart normal rate rhythm no murmurs. Abdomen soft nontender no masses. Extremities he has chronic nonpitting edema in both lower extremities. Calves are nontender. Results - Labs CBC & BMP: 01/31/17 04:36 01/31/17 04:36 Lab Results: I have reviewed the past 24 hour labs Assessment and Plan (1) Acute exacerbation of chronic obstructive airways disease Status: Acute Assessment and plan: Agree with corticosteroids, bronchodilators, broad-spectrum antibiotics. He relates that he was on oxygen at home but the oxygen machine stopped working about 6 months ago so he has not been using it. 01/30/2017 continuing 3 L nasal oxygen. Also on steroids bronchodilators and antibiotics. His PO2 measured in the 40s on 2 L twice. I am still concerned that that may be venous however we have gone up to 3 L and oxygen saturation 97 % should be acceptable. He is not drowsy. I do not think he is retaining CO2 01/31/2017 improved from the standpoint of his COPD exacerbation. Still requiring 3 L oxygen. Superimposed pneumonia. Recheck x-ray tomorrow. Current Visit: Yes (2) Hypokalemia Status: Acute Assessment and plan: Replacing potassium. It was 2.9. 01/30/2017 this is been replaced with potassium 4.0 today 01/31/2017 being monitored. Current Visit: Yes (3) Bilateral pneumonia Status: Acute Assessment and plan: Clearly has bilateral lower lobe bronchopneumonia. Agree with broad-spectrum antibiotics given that he has COPD. 01/30/2017 worse in the right lower lobe. Broad-spectrum antibiotics. Likely to be a gram-negative organism. Cultures pending 01/31/2017 recheck chest x-ray in the morning. Sputum cultures still pending. Blood cultures were negative. Current Visit: Yes (4) TYSON (obstructive sleep apnea) Status: Acute Assessment and plan: By history but is not on any devices 01/30/2017 may want to have sleep services to see 01/31/2017 patient used his CPAP overnight. He tells me that he has a unit at home. His history has changed on a regular basis. Current Visit: Yes (5) Bilateral edema of lower extremity Status: Acute Assessment and plan: Chronic lower extremity edema. Calves are nontender. History of frostbite on his feet. He may be having some right-sided heart failure. His BNP is not elevated. Doubt if he has left ventricular failure. 01/30/2017 likely due to chronic right heart failure from his COPD. Does have history of frostbite. 01/31/2017 a little less edema now. Current Visit: Yes (6) Mass of upper lobe of left lung Status: Acute Assessment and plan: This looks to be little changed from 7 years ago. I will get a CT to evaluate his lungs. He does not want to have a bronchoscope as apparently he had a difficult time with that about 15 years ago at [facility]. We need those records. 01/30/2017 radiographically this appears the same as it did in 2009. That is on plain chest x-ray. Current Visit: Yes
[2017-01-31] MEDS: CARVEDILOL 6.25 MG TABLET PO SCH ×2 (08:31→16:54)
[2017-01-31] MEDS: THIAMINE 100 MG TABLET PO SCH (08:31)
[2017-01-31] MEDS: POTASSIUM CHLORIDE 20 MEQ TABLET PO SCH (08:31)
[2017-01-31] MEDS: amLODIPine 10 MG TABLET PO SCH (08:31)
[2017-01-31] MEDS: CETIRIZINE 10 MG TABLET PO SCH (08:31)
[2017-01-31] MEDS: PANTOPRAZOLE 40 MG TABLET PO SCH (08:32)
[2017-01-31] MEDS: LEVOFLOXACIN INJ 750 MG in PREMIX 1 EACH IV SCH (09:09)
--- NOTE | 2017-01-31 15:44 | Hospitalist Progress Note ---
Assessment and Plan (1) Acute exacerbation of chronic obstructive airways disease Status: Acute Assessment and plan: Pulmonary assisting steroids, breathing treatments Levaquin and zosyn Current Visit: Yes (2) Pneumonia Status: Acute Assessment and plan: Levaquin and zosyn Pulmonary following Current Visit: Yes (3) Hypokalemia Status: Resolved Current Visit: Yes Hospitalist: Subjective Interval history: No acute events overnight. Feels better. SOB is improving. Exam - Constitutional Vitals: Period Temp Pulse Resp BP Sys/Melendez Pulse Ox Last 24 Hr 96.2 F-97.9 F 74-98 16-20 140-163/89-99 75-98 General appearance: normal weight - Head Head exam: Present: normocephalic, atraumatic - Eye Eye exam: Present: EOMI Pupils: Present: TALAT - ENT ENT exam: Present: normal exam - Neck Neck exam: Present: normal inspection - Respiratory Respiratory exam: Present: clear to auscultation bilaterally. Absent: rhonchi, wheezes - Cardiovascular Cardiovascular exam: Present: regular rate and rhythm - GI/Abdominal GI/Abdominal exam: Present: normal bowel sounds, soft. Absent: tenderness, rebound - Extremities Exam Extremities exam: Present: normal inspection - Back Exam Back exam: Present: normal inspection - Neurological Exam Neurological exam: Present: alert, oriented X3 - Psychiatric Psychiatric exam: Present: normal affect, normal mood - Skin Skin exam: Present: warm, intact Results - Labs CBC & BMP: 01/31/17 04:36 01/31/17 04:36
--- NOTE | 2017-01-31 16:38 | Sleep Medicine Progress Note ---
Assessment and Plan (1) TYSON (obstructive sleep apnea) Status: Acute Assessment and plan: Patient doing well with CPAP. He requires 16 cm of pressure based on auto titration results last night. We will have his machine reset and also check a download from his CPAP machine. Current Visit: Yes Sleep Medicine Subjective Interval history: Patient did well last night with auto CPAP. He actually slipped with auto CPAP over 6 hours. His average device pressure was about 16 cm and he had excellent control with an AHI 1.9. He does have his CPAP machine here. We will get a download from his machine and have his machine set at 16 cm. He will need follow-up in the sleep clinic after discharge. Exam (Progress Note) - Constitutional Vitals: Period Temp Pulse Resp BP Sys/Melendez Pulse Ox Last 24 Hr 96.2 F-97.9 F 73-98 16-20 140-163/89-98 75-98 Results - Labs CBC & BMP: 01/31/17 04:36 01/31/17 04:36 Lab Results: I have reviewed the past 24 hour labs
--- NOTE | 2017-01-31 17:29 | Hospitalist Progress Note ---
Assessment and Plan (1) Acute exacerbation of chronic obstructive airways disease Status: Acute Current Visit: Yes (2) Acute on chronic respiratory failure with hypoxemia Status: Acute Current Visit: Yes (3) Community acquired pneumonia Problem details: Right lower lobe pneumonia Status: Acute Current Visit: Yes (4) Obstructive sleep apnea Status: Chronic Current Visit: Yes (5) Prostate hypertrophy Status: Chronic Current Visit: Yes (6) Hypokalemia Status: Acute Current Visit: Yes (7) Lung mass Problem details: Left suprahilar region may represent scarring rather than pneumonia or true mass. I appreciate reviewed by consulting sample stitcher. Status: Acute Current Visit: Yes (8) Essential hypertension Status: Acute Current Visit: Yes (9) Anemia of chronic disease Status: Acute Current Visit: Yes Hospitalist: Subjective Interval history: Patient is a 61-year-old black male admitted for management of COPD acute exacerbation. Patient also has acute and chronic hypoxemic respiratory failure. He reports that his work of breathing is improving and he is better today than yesterday. Exam - Constitutional Vitals: Period Temp Pulse Resp BP Sys/Melendez Pulse Ox Last 24 Hr 96.2 F-97.9 F 73-98 16-20 140-163/89-98 75-98 General appearance: morbidly obese - Head Head exam: Present: normal inspection - Eye Eye exam: Present: EOMI - ENT ENT exam: Present: normal exam - Neck Neck exam: Absent: meningismus, tenderness - Respiratory Respiratory exam: Present: clear to auscultation bilaterally, decreased breath sounds. Absent: rales, wheezes - Cardiovascular Cardiovascular exam: Present: regular rate and rhythm - GI/Abdominal GI/Abdominal exam: Present: normal bowel sounds, distended, other (Large pannus) . Absent: mass, rebound - Extremities Exam Extremities exam: Present: normal inspection. Absent: edema - Neurological Exam Neurological exam: Present: alert, oriented X3 - Psychiatric Psychiatric exam: Present: normal affect, normal mood - Skin Skin exam: Present: normal color, dry. Absent: rash Results - Labs CBC & BMP: 01/31/17 04:36 01/31/17 04:36
[2017-01-31] MEDS: ENOXAPARIN 40 MG/0.4 ML SYRINGE SUBCUT SCH (21:55)
[2017-02-01] MEDS: ALBUTEROL/IPRATROPIUM 3 ML NEB RESP TX SCH ×4 (00:20→20:18)
[2017-02-01] MEDS: methylPREDNISolone SOD SUC 40 MG/1 ML VIAL IV SCH ×3 (00:33→20:40)
[2017-02-01] MEDS: PIPERACILLIN/TAZOBACTAM 3,375 MG in SODIUM CHLORIDE 0.9% 100 ML IV SCH ×3 (02:39→17:59)
[2017-02-01 06:34] LABS: Hematocrit 36.2 VOL% (42.0-52.0); Hemoglobin 11.5 GM/DL (14.0-18.0); Immature Granulocytes % 0.6 %; Immature Granulocytes Absolute 0.05 #; Lymphocytes # 0.7 10*3/uL (1.4-4.0); Lymphocytes % 8.4 % (21.2-54.2); Mean Corpuscular HGB Conc 31.8 GM/DL (32-36); Mean Corpuscular Hemoglobin 27 PG (27-34); Mean Platelet Volume 12.3 FL (9.6-12.0); Monocytes # 0.5 10*3/uL (0.11-0.8); Monocytes % 5.5 % (1.7-12.7); Neutrophils # 7.3 10*3/uL (1.4-7.4); Neutrophils % 85.5 % (38.7-73.9); Platelet Count 212 T/CUMM (130-400); Red Blood Count 4.21 MC/CUMM (3.8-5.5); Red Cell Distribution Width 13.7 % (9.3-17.3); White Blood Count 8.6 T/CUMM (4-12)
[2017-02-01 07:10] LABS: Calcium 9.1 MG/DL (8.5-10.1); Magnesium 2.6 MG/DL (1.8-2.4); Osmolality,Calculated 296.8 MOS/KG (273-304); Potassium 3.6 MMOL/L (3.5-5.1)
--- NOTE | 2017-02-01 07:47 | XRay Report ---
XR chest 2V Indication: Right lower lobe pneumonia. COPD. Comparison: Chest x-ray 01/29/2017 Technique: PA and lateral chest x-ray was performed. Findings: Interval partial clearing of bilateral airspace opacities is demonstrated. Upper lungs remain clear . Apical bullous disease is suggested in the right lung apex. Cardiomediastinal silhouette is stable. Bones and soft tissues are stable. Impression: 1. Interval partial clearing of bilateral airspace opacities is demonstrated. 02/01/2017 7:43 AM PROCEDURE INTERPRETED AT [facility] DEPARTMENT OF RADIOLOGY Final Report Signed by: Dr. Casper Mathis
--- NOTE | 2017-02-01 08:17 | Pulmonology Progress Note ---
Pulmonary - PN: Subj Interval history: This is a 61-year-old black male but has COPD. He came in with an acute pneumonia with 3 days of chills and increased sputum production and cough. His CT scan shows a fairly extensive right lower lobe pneumonia. The left upper lobe shows an area that may be consolidation but I suspect it is scarring as it was present there radiographically 7 years ago. He has had previous evaluation for this that apparently was nondiagnostic. He also has a good bit of bullous emphysema and has an infected bulla in his R upper lobe. 01/31/2017 patient is feeling better. Now moved to the [place]. No further fever. He is producing sputum. He used CPAP last night. Tolerated it okay. O2 sats in the upper 90s on 3 L. Continuing empiric antibiotics. Recheck chest x-ray tomorrow. Has severe COPD with superimposed pneumonia. 02/01/2017 patient continues to improve. Chest x-ray is clearly improved. The right lower lobe pneumonia is better. I will decrease steroids. Probably could wean them over the next couple of days. Needs IV antibiotics a little bit longer. Should be ready for discharge by Saturday Exam (Progress Note) - Constitutional Vitals: Period Temp Pulse Resp BP Sys/Melendez Pulse Ox Last 24 Hr 97.0 F-98.0 F 57-80 17-61 136-162/78-98 92-100 Exam: Is alert and calm. Vital signs normal. O2 sat measuring 99% on 3 L. Pupils react to light throat is clear. Neck is supple no bruits. Chest reveals some rhonchi. Minimal expiratory wheezes on the left side. Heart normal rate rhythm no murmurs. Abdomen soft nontender no masses. Extremities he has chronic nonpitting edema in both lower extremities. Calves are nontender. Overall much improved. Results - Labs CBC & BMP: 02/01/17 06:04 02/01/17 06:04 Lab Results: I have reviewed the past 24 hour labs - Diagnostic Findings Procedure: Chest x-ray: image reviewed by me (Right lower lobe pneumonia has markedly improved. 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 He relates that he was on oxygen at home but the oxygen machine stopped working about 6 months ago so he has not been using it. 01/30/2017 continuing 3 L nasal oxygen. Also on steroids bronchodilators and antibiotics. His PO2 measured in the 40s on 2 L twice. I am still concerned that that may be venous however we have gone up to 3 L and oxygen saturation 97 % should be acceptable. He is not drowsy. I do not think he is retaining CO2 01/31/2017 improved from the standpoint of his COPD exacerbation. Still requiring 3 L oxygen. Superimposed pneumonia. Recheck x-ray tomorrow. 02/01/2017 improved. Taper steroids. Wean oxygen as tolerated. Likely will need oxygen post discharge. His oxygen machine was not working at home earlier and needs to be replaced or repaired Current Visit: Yes (2) Hypokalemia Status: Resolved Assessment and plan: Replacing potassium. It was 2.9. 01/30/2017 this is been replaced with potassium 4.0 today 01/31/2017 being monitored. 02/01/2017 potassium 3.6. Current Visit: Yes (3) Bilateral pneumonia Status: Acute Assessment and plan: Clearly has bilateral lower lobe bronchopneumonia. Agree with broad-spectrum antibiotics given that he has COPD. 01/30/2017 worse in the right lower lobe. Broad-spectrum antibiotics. Likely to be a gram-negative organism. Cultures pending 01/31/2017 recheck chest x-ray in the morning. Sputum cultures still pending. Blood cultures were negative. 02/01/2017 chest x-ray shows improvement. Would suggest 3 more days of antibiotics. Likely home first of next week, he follows up at [facility] Current Visit: Yes (4) TYSON (obstructive sleep apnea) Status: Acute Assessment and plan: By history but is not on any devices 01/30/2017 may want to have sleep services to see 01/31/2017 patient used his CPAP overnight. He tells me that he has a unit at home. His history has changed on a regular basis. Current Visit: Yes (5) Bilateral edema of lower extremity Status: Acute Assessment and plan: Chronic lower extremity edema. Calves are nontender. History of frostbite on his feet. He may be having some right-sided heart failure. His BNP is not elevated. Doubt if he has left ventricular failure. 01/30/2017 likely due to chronic right heart failure from his COPD. Does have history of frostbite. 01/31/2017 a little less edema now. 02/01/2017 less edema. He has chronic leg injury from previous frostbite and surgery related to that in the past Current Visit: Yes (6) Mass of upper lobe of left lung Status: Chronic Assessment and plan: This looks to be little changed from 7 years ago. I will get a CT to evaluate his lungs. He does not want to have a bronchoscope as apparently he had a difficult time with that about 15 years ago at [facility]. We need those records. 01/30/2017 radiographically this appears the same as it did in 2009. That is on plain chest x-ray. 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 It has not changed in many years. Current Visit: Yes
[2017-02-01] MEDS: POTASSIUM CHLORIDE 20 MEQ TABLET PO SCH (09:00)
[2017-02-01] MEDS: PANTOPRAZOLE 40 MG TABLET PO SCH (09:00)
[2017-02-01] MEDS: CARVEDILOL 6.25 MG TABLET PO SCH ×2 (09:00→17:13)
[2017-02-01] MEDS: amLODIPine 10 MG TABLET PO SCH (09:01)
[2017-02-01] MEDS: CETIRIZINE 10 MG TABLET PO SCH (09:01)
[2017-02-01] MEDS: THIAMINE 100 MG TABLET PO SCH (09:01)
[2017-02-01] MEDS: LEVOFLOXACIN INJ 750 MG in PREMIX 1 EACH IV SCH (09:06)
--- NOTE | 2017-02-01 12:56 | Sleep Medicine Progress Note ---
Assessment and Plan (1) TYSON (obstructive sleep apnea) Status: Acute Assessment and plan: Patient will be scheduled for follow up in sleep clinic in 1 month. Current Visit: Yes Sleep Medicine Subjective Interval history: Patient again slept well with CPAP last night. He spent almost 6 hours on CPAP. It does appear that he is doing better on lower pressures of CPAP now. I do think we can just leave him at 11 cm. His average device pressure last night was about 8.7 with a maximum titrated EPAP of almost 11. We will schedule him for follow-up in sleep clinic after discharge. Exam (Progress Note) - Constitutional Vitals: Period Temp Pulse Resp BP Sys/Melendez Pulse Ox Last 24 Hr 96.7 F-98.0 F 57-80 17-61 136-162/78-98 92-100 Exam: He is alert and responsive in no acute distress. Chest with good air movement and no focal wheeze or rhonchi. Cardiac exam reveals a regular rhythm without murmur or gallop. Abdomen soft nontender extremities without increased edema. Results - Labs CBC & BMP: 02/01/17 06:04 02/01/17 06:04 Lab Results: I have reviewed the past 24 hour labs
--- NOTE | 2017-02-01 14:41 | Hospitalist Progress Note ---
Assessment and Plan (1) Acute exacerbation of chronic obstructive airways disease Problem details: Submit sputum sample for Gram stain and culture if an adequate sample can be collected. Continue IV antibiotic therapy, supplemental nasal cannula oxygen therapy, overnight CPAP therapy, incentive spirometry with cough and deep breathing exercises. Increase physical activity with ambulation outside hospital room. Status: Acute Current Visit: Yes (2) Acute on chronic respiratory failure with hypoxemia Status: Acute Current Visit: Yes (3) Community acquired pneumonia Problem details: Right lower lobe pneumonia; follow-up Legionella and strep pneumonia test results. Patient is receiving empiric Levaquin and Zosyn IV antibiotic therapy day 3 of 7. He is also receiving Solu-Medrol IV therapy Status: Acute Current Visit: Yes (4) Obstructive sleep apnea Problem details: Outpatient follow-up in sleep clinic and with property technician is to be scheduled. Status: Chronic Current Visit: Yes (5) Prostate hypertrophy Status: Chronic Current Visit: Yes (6) Hypokalemia Problem details: Supplements ordered. Check serum magnesium levelsupplement as indicated. Status: Acute Current Visit: Yes (7) Lung mass Problem details: Left suprahilar region may represent scarring rather than pneumonia or true mass. I appreciate reviewed by consulting property technician. Status: Acute Current Visit: Yes (8) Essential hypertension Status: Acute Current Visit: Yes (9) Anemia of chronic disease Status: Acute Current Visit: Yes (10) Acute on chronic diastolic CHF (congestive heart failure) Problem details: Grade 2 diastolic dysfunction reported on 01/30/2017 transthoracic echocardiogram. LVEF 55%. Mild concentric hypertrophy reported. Abnormal septal wall motion with systolic thickening consistent with RV pressure overload. Severe pulmonary hypertension - pulmonary artery pressure 61 mmHg. Status: Acute Current Visit: Yes Hospitalist: Subjective Interval history: Patient is alert and fully oriented. He is pleased with how well he feels after using CPAP machine overnight and nasal cannula supplemental oxygen with scheduled nebulizer therapy daytime. He does not believe that his home CPAP unit functions properly. [employer] rep is to review patient's home CPAP unit and replace that unit if indicated. Exam - Constitutional Vitals: Period Temp Pulse Resp BP Sys/Melendez Pulse Ox Last 24 Hr 96.7 F-98.0 F 56-80 17-61 136-162/78-98 92-100 General appearance: over weight - Head Head exam: Present: normal inspection - Neck Neck exam: Absent: meningismus - Respiratory Respiratory exam: Present: other (Few scattered crackles; no expiratory wheezing audible today; no focal consolidation changes.) - Cardiovascular Cardiovascular exam: Present: regular rate and rhythm - GI/Abdominal GI/Abdominal exam: Present: normal bowel sounds, other (Truncal obesity). Absent: mass, tenderness, rebound - Extremities Exam Extremities exam: Present: edema (Trace lower leg pitting edema; no asymmetric calf swelling or palpable calf cords) - Back Exam Back exam: Present: normal inspection - Neurological Exam Neurological exam: Present: alert, oriented X3 - Psychiatric Psychiatric exam: Present: normal affect, normal mood. Absent: agitated, anxious - Skin Skin exam: Present: normal color, warm, dry. Absent: rash Results - Labs CBC & BMP: 02/01/17 06:04 02/01/17 06:04 - Diagnostic Findings Procedure: Chest x-ray: report reviewed by me, other (Today's chest x-ray reports partial clearing of bilateral airspace opacities. Apical bullous disease right lung apex.), Ultrasound: other, report reviewed by me (01/29/2017 bilateral lower leg ultrasound - no DVT)
[2017-02-01] MEDS: ENOXAPARIN 40 MG/0.4 ML SYRINGE SUBCUT SCH (20:40)
[2017-02-02] MEDS: ALBUTEROL/IPRATROPIUM 3 ML NEB RESP TX SCH ×4 (02:05→19:04)
[2017-02-02 04:20] LABS: Hematocrit 36.9 VOL% (42.0-52.0); Hemoglobin 11.7 GM/DL (14.0-18.0); Immature Granulocytes Absolute 0.06 #; Lymphocytes # 0.7 10*3/uL (1.4-4.0); Lymphocytes % 10.8 % (21.2-54.2); Mean Corpuscular HGB Conc 31.7 GM/DL (32-36); Mean Corpuscular Hemoglobin 27 PG (27-34); Mean Platelet Volume 12.2 FL (9.6-12.0); Monocytes # 0.5 10*3/uL (0.11-0.8); Monocytes % 7.7 % (1.7-12.7); Neutrophils # 4.9 10*3/uL (1.4-7.4); Neutrophils % 80.5 % (38.7-73.9); Platelet Count 212 T/CUMM (130-400); Red Blood Count 4.29 MC/CUMM (3.8-5.5); Red Cell Distribution Width 13.6 % (9.3-17.3); White Blood Count 6.1 T/CUMM (4-12)
[2017-02-02 04:45] LABS: Calcium 8.8 MG/DL (8.5-10.1); Magnesium 2.4 MG/DL (1.8-2.4); Osmolality,Calculated 295.8 MOS/KG (273-304); Potassium 3.7 MMOL/L (3.5-5.1)
[2017-02-02] MEDS: PIPERACILLIN/TAZOBACTAM 3,375 MG in SODIUM CHLORIDE 0.9% 100 ML IV SCH ×2 (05:08→11:31)
[2017-02-02] MEDS: POTASSIUM CHLORIDE 20 MEQ TABLET PO SCH (09:03)
[2017-02-02] MEDS: PANTOPRAZOLE 40 MG TABLET PO SCH (09:03)
[2017-02-02] MEDS: CARVEDILOL 6.25 MG TABLET PO SCH ×2 (09:04→16:44)
[2017-02-02] MEDS: THIAMINE 100 MG TABLET PO SCH (09:05)
[2017-02-02] MEDS: amLODIPine 10 MG TABLET PO SCH (09:05)
[2017-02-02] MEDS: CETIRIZINE 10 MG TABLET PO SCH (09:06)
[2017-02-02] MEDS: methylPREDNISolone SOD SUC 40 MG/1 ML VIAL IV SCH (09:08)
[2017-02-02] MEDS: LEVOFLOXACIN INJ 750 MG in PREMIX 1 EACH IV SCH (09:28)
--- NOTE | 2017-02-02 11:06 | Pulmonology Progress Note ---
Pulmonary - PN: Subj Interval history: PAtient with COPD and pneumonia, doing much better. Sitting up in bed, reports that breathing is improved. He does not have a ride operator outpatient as [facility] Exam (Progress Note) - Constitutional Vitals: Period Temp Pulse Resp BP Sys/Melnedez Pulse Ox Last 24 Hr 96.7 F-97.7 F 50-95 17-20 128-157/70-98 90-100 General appearance: no acute distress - Head Head exam: Present: normal inspection - Respiratory Respiratory exam: Present: wheezes. Absent: accessory muscle use, stridor - Cardiovascular Cardiovascular exam: Present: regular rate and rhythm - GI/Abdominal GI/Abdominal exam: Present: normal bowel sounds - Extremities Exam Extremities exam: Present: normal inspection Results - Labs CBC & BMP: 02/02/17 03:39 02/02/17 03:39 Lab Results: I have reviewed the past 24 hour labs Assessment and Plan (1) Acute exacerbation of chronic obstructive airways disease Problem details: Submit sputum sample for Gram stain and culture if an adequate sample can be collected. Continue IV antibiotic therapy, supplemental nasal cannula oxygen therapy, overnight CPAP therapy, incentive spirometry with cough and deep breathing exercises. Increase physical activity with ambulation outside hospital room. Status: Acute Assessment and plan: Clinically doing better, will switch from solumedrol to prednisone. [facility] to follow [facility] Current Visit: Yes (2) Pneumonia Status: Acute Assessment and plan: Continue with antibiotics. Can probably switch to PO at this time, consider DCing Zosyn and finishing 10 day course of po levaquin Current Visit: Yes
--- NOTE | 2017-02-02 14:28 | Hospitalist Progress Note ---
Assessment and Plan (1) Acute exacerbation of chronic obstructive airways disease Problem details: Submit sputum sample for Gram stain and culture if an adequate sample can be collected. Continue IV antibiotic therapy, supplemental nasal cannula oxygen therapy, overnight CPAP therapy, incentive spirometry with cough and deep breathing exercises. Increase physical activity with ambulation outside hospital room. Status: Acute Assessment and plan: Pulmonary assisting steroids, breathing treatments Discontinue zosyn Levaquin switched to po Current Visit: Yes (2) Pneumonia Status: Acute Assessment and plan: Levaquin Pulmonary following Current Visit: Yes (3) Hypokalemia Status: Resolved Current Visit: Yes Hospitalist: Subjective Interval history: No acute events overnight. Patient seen sitting on side of bed. Reports that he is feeling better. Exam - Constitutional Vitals: Period Temp Pulse Resp BP Sys/Melendez Pulse Ox Last 24 Hr 97.0 F-97.7 F 50-95 17-20 128-157/70-104 90-99 General appearance: over weight - Head Head exam: Present: normocephalic, atraumatic - Eye Eye exam: Present: EOMI Pupils: Present: TALAT - ENT ENT exam: Present: normal exam - Neck Neck exam: Present: normal inspection - Respiratory Respiratory exam: Present: clear to auscultation bilaterally - Cardiovascular Cardiovascular exam: Present: regular rate and rhythm - GI/Abdominal GI/Abdominal exam: Present: normal bowel sounds, soft. Absent: tenderness, rebound - Extremities Exam Extremities exam: Present: normal inspection - Back Exam Back exam: Present: normal inspection - Neurological Exam Neurological exam: Present: alert, oriented X3 - Psychiatric Psychiatric exam: Present: normal affect, normal mood - Skin Skin exam: Present: warm, intact Results - Labs CBC & BMP: 02/02/17 03:39 02/02/17 03:39
[2017-02-02] MEDS: LEVOFLOXACIN 500 MG TABLET PO SCH (14:42)
[2017-02-02] MEDS: ENOXAPARIN 40 MG/0.4 ML SYRINGE SUBCUT SCH (22:05)
[2017-02-03] MEDS: ALBUTEROL/IPRATROPIUM 3 ML NEB RESP TX SCH ×4 (01:17→19:51)
[2017-02-03 04:35] LABS: Hematocrit 35.9 VOL% (42.0-52.0); Hemoglobin 11.2 GM/DL (14.0-18.0); Immature Granulocytes Absolute 0.07 #; Lymphocytes # 1.5 10*3/uL (1.4-4.0); Lymphocytes % 19.8 % (21.2-54.2); Mean Corpuscular HGB Conc 31.2 GM/DL (32-36); Mean Corpuscular Hemoglobin 27 PG (27-34); Mean Corpuscular Volume 86.5 FL (87-102); Mean Platelet Volume 12.2 FL (9.6-12.0); Monocytes # 0.9 10*3/uL (0.11-0.8); Neutrophils # 4.9 10*3/uL (1.4-7.4); Neutrophils % 67.2 % (38.7-73.9); Platelet Count 215 T/CUMM (130-400); Red Blood Count 4.15 MC/CUMM (3.8-5.5); Red Cell Distribution Width 13.6 % (9.3-17.3); White Blood Count 7.3 T/CUMM (4-12)
[2017-02-03] MEDS: THIAMINE 100 MG TABLET PO SCH (08:35)
[2017-02-03] MEDS: PANTOPRAZOLE 40 MG TABLET PO SCH (08:35)
[2017-02-03] MEDS: CARVEDILOL 6.25 MG TABLET PO SCH ×2 (08:35→17:04)
[2017-02-03] MEDS: POTASSIUM CHLORIDE 20 MEQ TABLET PO SCH (08:35)
[2017-02-03] MEDS: amLODIPine 10 MG TABLET PO SCH (08:35)
[2017-02-03] MEDS: CETIRIZINE 10 MG TABLET PO SCH (08:35)
[2017-02-03] MEDS: predniSONE 50 MG TABLET PO SCH (08:35)
--- NOTE | 2017-02-03 09:59 | Pulmonology Progress Note ---
Pulmonary - PN: Subj Interval history: Patient doing well, breathing back ot baseline and no cough. He feels ready to go home Exam (Progress Note) - Constitutional Vitals: Period Temp Pulse Resp BP Sys/Melendez Pulse Ox Last 24 Hr 97.0 F-97.7 F 47-71 18-20 136-165/69-104 90-100 General appearance: no acute distress - Head Head exam: Present: normal inspection - Respiratory Respiratory exam: Present: clear to auscultation bilaterally - Cardiovascular Cardiovascular exam: Present: regular rate and rhythm Results - Labs CBC & BMP: 02/03/17 03:20 02/02/17 03:39 Lab Results: I have reviewed the past 24 hour labs Assessment and Plan (1) Acute exacerbation of chronic obstructive airways disease Problem details: Submit sputum sample for Gram stain and culture if an adequate sample can be collected. Continue IV antibiotic therapy, supplemental nasal cannula oxygen therapy, overnight CPAP therapy, incentive spirometry with cough and deep breathing exercises. Increase physical activity with ambulation outside hospital room. Status: Acute Assessment and plan: Doing well on Prednisone, would continue for 5 more days. Can restart home meds and cut back on neb treatments as well Current Visit: Yes (2) Pneumonia Status: Acute Assessment and plan: Doing well, finishing 10 day course of po levaquin Current Visit: Yes
--- NOTE | 2017-02-03 13:02 | Hospitalist Progress Note ---
Assessment and Plan (1) Acute exacerbation of chronic obstructive airways disease Problem details: Submit sputum sample for Gram stain and culture if an adequate sample can be collected. Continue IV antibiotic therapy, supplemental nasal cannula oxygen therapy, overnight CPAP therapy, incentive spirometry with cough and deep breathing exercises. Increase physical activity with ambulation outside hospital room. Status: Acute Assessment and plan: Pulmonary assisting steroids, breathing treatments Discontinued zosyn yesterday Levaquin switched to po Current Visit: Yes (2) Pneumonia Status: Acute Assessment and plan: Levaquin Pulmonary following Current Visit: Yes (3) Hypokalemia Status: Resolved Current Visit: Yes Hospitalist: Subjective Interval history: Ho No acute events overnight. Patient doing better. Seen sitting on the side of the bed. Reports that his breathing is much improved. Hopefully will be ready for discharge tomorrow. Exam - Constitutional Vitals: Period Temp Pulse Resp BP Sys/Melendez Pulse Ox Last 24 Hr 97.0 F-97.7 F 47-77 16-20 136-165/69-96 90-100 General appearance: over weight - Head Head exam: Present: normocephalic, atraumatic - Eye Eye exam: Present: EOMI Pupils: Present: TALAT - ENT ENT exam: Present: normal exam - Neck Neck exam: Present: normal inspection - Respiratory Respiratory exam: Present: clear to auscultation bilaterally. Absent: rhonchi, wheezes - Cardiovascular Cardiovascular exam: Present: regular rate and rhythm - GI/Abdominal GI/Abdominal exam: Present: normal bowel sounds, soft. Absent: tenderness, rebound - Extremities Exam Extremities exam: Present: normal inspection. Absent: edema - Back Exam Back exam: Present: normal inspection - Neurological Exam Neurological exam: Present: alert, oriented X3 - Psychiatric Psychiatric exam: Present: normal affect, normal mood - Skin Skin exam: Present: warm, intact Results - Labs CBC & BMP: 02/03/17 03:20 02/02/17 03:39
[2017-02-03] MEDS: LEVOFLOXACIN 500 MG TABLET PO SCH (14:16)
[2017-02-03] MEDS: ENOXAPARIN 40 MG/0.4 ML SYRINGE SUBCUT SCH (22:06)
[2017-02-04] MEDS: ALBUTEROL/IPRATROPIUM 3 ML NEB RESP TX SCH ×3 (01:02→13:19)
[2017-02-04 06:12] LABS: Eosinophils % 0.4 % (0.00-10.9); Hemoglobin 11.8 GM/DL (14.0-18.0); Immature Granulocytes % 1.3 %; Lymphocytes % 25.5 % (21.2-54.2); Mean Corpuscular HGB Conc 31.9 GM/DL (32-36); Mean Corpuscular Hemoglobin 27 PG (27-34); Mean Corpuscular Volume 85.8 FL (87-102); Mean Platelet Volume 11.8 FL (9.6-12.0); Monocytes # 0.8 10*3/uL (0.11-0.8); Monocytes % 10.1 % (1.7-12.7); Neutrophils % 62.7 % (38.7-73.9); Platelet Count 220 T/CUMM (130-400); Red Blood Count 4.31 MC/CUMM (3.8-5.5); Red Cell Distribution Width 13.4 % (9.3-17.3)
--- NOTE | 2017-02-04 08:56 | Pulmonology Progress Note ---
Pulmonary - PN: Subj Interval history: This is a 61-year-old black male but has COPD. He came in with an acute pneumonia with 3 days of chills and increased sputum production and cough. His CT scan shows a fairly extensive right lower lobe pneumonia. The left upper lobe shows an area that may be consolidation but I suspect it is scarring as it was present there radiographically 7 years ago. He has had previous evaluation for this that apparently was nondiagnostic. He also has a good bit of bullous emphysema and has an infected bulla in his R upper lobe. 01/31/2017 patient is feeling better. Now moved to the [place]. No further fever. He is producing sputum. He used CPAP last night. Tolerated it okay. O2 sats in the upper 90s on 3 L. Continuing empiric antibiotics. Recheck chest x-ray tomorrow. Has severe COPD with superimposed pneumonia. 02/01/2017 patient continues to improve. Chest x-ray is clearly improved. The right lower lobe pneumonia is better. I will decrease steroids. Probably could wean them over the next couple of days. Needs IV antibiotics a little bit longer. Should be ready for discharge by Saturday02/04/2017 patient feeling much better. Lungs sound clear. Ready for discharge. Oxygen has been arranged at home through the [facility]. He will follow-up at [facility] in [place]. Exam (Progress Note) - Constitutional Vitals: Period Temp Pulse Resp BP Sys/Melendez Pulse Ox Last 24 Hr 96.5 F-98.3 F 54-89 16-22 145-164/82-96 90-100 Exam: Is alert and calm. Vital signs normal. O2 sat measuring 99% on 3 L. Pupils react to light throat is clear. Neck is supple no bruits. Chest shows prolonged expiratory phase but no wheezing no rhonchi. Heart normal rate rhythm no murmurs. Abdomen soft nontender no masses. Extremities he has chronic nonpitting edema in both lower extremities. Calves are nontender. Results - Labs CBC & BMP: 02/04/17 05:37 02/02/17 03:39 Lab Results: I have reviewed the past 24 hour labs Assessment and Plan (1) Acute exacerbation of chronic obstructive airways disease Problem details: Submit sputum sample for Gram stain and culture if an adequate sample can be collected. Continue IV antibiotic therapy, supplemental nasal cannula oxygen therapy, overnight CPAP therapy, incentive spirometry with cough and deep breathing exercises. Increase physical activity with ambulation outside hospital room. Status: Acute Assessment and plan: Agree with corticosteroids, bronchodilators, broad-spectrum antibiotics. He relates that he was on oxygen at home but the oxygen machine stopped working about 6 months ago so he has not been using it. 01/30/2017 continuing 3 L nasal oxygen. Also on steroids bronchodilators and antibiotics. His PO2 measured in the 40s on 2 L twice. I am still concerned that that may be venous however we have gone up to 3 L and oxygen saturation 97 % should be acceptable. He is not drowsy. I do not think he is retaining CO2 01/31/2017 improved from the standpoint of his COPD exacerbation. Still requiring 3 L oxygen. Superimposed pneumonia. Recheck x-ray tomorrow. 02/01/2017 improved. Taper steroids. Wean oxygen as tolerated. Likely will need oxygen post discharge. His oxygen machine was not working at home earlier and needs to be replaced or repaired 02/04/17 flareup resolved. Ready for discharge. Current Visit: Yes (2) Hypokalemia Status: Resolved Assessment and plan: Replacing potassium. It was 2.9. 01/30/2017 this is been replaced with potassium 4.0 today 01/31/2017 being monitored. 02/01/2017 potassium 3.6. 02/04/17 this is resolved. Current Visit: Yes (3) Bilateral pneumonia Status: Acute Assessment and plan: Clearly has bilateral lower lobe bronchopneumonia. Agree with broad-spectrum antibiotics given that he has COPD. 01/30/2017 worse in the right lower lobe. Broad-spectrum antibiotics. Likely to be a gram-negative organism. Cultures pending 01/31/2017 recheck chest x-ray in the morning. Sputum cultures still pending. Blood cultures were negative. 02/01/2017 chest x-ray shows improvement. Would suggest 3 more days of antibiotics. Likely home first of next week, he follows up at [facility] 02/04/2017 this has resolved. Can send home off antibiotics. Current Visit: Yes (4) TYSON (obstructive sleep apnea) Status: Acute Assessment and plan: By history but is not on any devices 01/30/2017 may want to have sleep services to see 01/31/2017 patient used his CPAP overnight. He tells me that he has a unit at home. His history has changed on a regular basis. Current Visit: Yes (5) Bilateral edema of lower extremity Status: Acute Assessment and plan: Chronic lower extremity edema. Calves are nontender. History of frostbite on his feet. He may be having some right-sided heart failure. His BNP is not elevated. Doubt if he has left ventricular failure. 01/30/2017 likely due to chronic right heart failure from his COPD. Does have history of frostbite. 01/31/2017 a little less edema now. 02/01/2017 less edema. He has chronic leg injury from previous frostbite and surgery related to that in the past 02/04/2017 this is much better. Current Visit: Yes (6) Mass of upper lobe of left lung Status: Chronic Assessment and plan: This looks to be little changed from 7 years ago. I will get a CT to evaluate his lungs. He does not want to have a bronchoscope as apparently he had a difficult time with that about 15 years ago at [facility]. We need those records. 01/30/2017 radiographically this appears the same as it did in 2009. That is on plain chest x-ray. 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 It has not changed in many years. 02/04/2017 postinflammatory fibrosis and a rounded area in the left upper lobe unchanged over many years. Current Visit: Yes
[2017-02-04] MEDS: amLODIPine 10 MG TABLET PO SCH (09:57)
[2017-02-04] MEDS: THIAMINE 100 MG TABLET PO SCH (09:57)
[2017-02-04] MEDS: CARVEDILOL 6.25 MG TABLET PO SCH (09:57)
[2017-02-04] MEDS: POTASSIUM CHLORIDE 20 MEQ TABLET PO SCH (09:57)
[2017-02-04] MEDS: predniSONE 50 MG TABLET PO SCH (09:58)
[2017-02-04] MEDS: CETIRIZINE 10 MG TABLET PO SCH (09:58)
[2017-02-04] MEDS: PANTOPRAZOLE 40 MG TABLET PO SCH (09:58)
[2017-02-04] MEDS: LEVOFLOXACIN 500 MG TABLET PO SCH (10:01)
--- NOTE | 2017-02-04 10:09 | Physician Query Form ---
CLICK EDIT DOCUMENT TO SELECT QUERY ANSWER --> OK --> SIGN PROVIDERS: Make your selection(s) from the choices in EACH section by typing an "x" and enter comments in the comment section. Please use your independent medical judgment in providing your response. This request does not imply that any particular answer is desired or expected. CLINICAL INDICATORS: (Providers should not edit this section) The below diagnosis was documented in the record, but is not consistently noted in subsequent documentation. The medical record indicates that the patient was admitted with acute exacerbation of COPD, then on the : " Acute on chronic respiratory failure with hypoxemia", ABG's on the : pH 7.424, pC02 45.6, p02 44.7 and that patient was treated with NC oxygen 2-3 liters with occasional CPAP. Diagnosis: Acute on chronic respiratory failure with hypoxemia Please clarify the following: (x ) The above diagnosis was monitored, evaluated, and/or treated and is a confirmed diagnosis ----(Please include indicators) __ ( ) The above diagnosis was ruled out ( ) The above diagnosis is still a likely, suspected, probable diagnosis-----( Please include indicators) ( ) Other, please specify: ( ) Clinically unable to determine COMMENTS: PLEASE ALSO DOCUMENT RESPONSE IN PROGRESS NOTES AND/OR DISCHARGE SUMMARY Use of terms such as suspected, likely, or probable (associated with a specific diagnosis that is being evaluated, monitored, or treated as if it exists) are acceptable and can be restated in the discharge summary if not ruled out. MTDD
--- NOTE | 2017-02-04 10:11 | Physician Query Form ---
CLICK EDIT DOCUMENT TO SELECT QUERY ANSWER --> OK --> SIGN Edelmira Mathis RN, CCDS Certified Clinical High Worker W) [phone] (f) [phone] [email or web address] PROVIDERS: Make your selection(s) from the choices in EACH section by typing an "x" and enter comments in the comment section. Please use your independent medical judgment in providing your response. This request does not imply that any particular answer is desired or expected. CLINICAL INDICATORS: (Providers should not edit this section) The below diagnosis was documented in the record, but is not consistently noted in subsequent documentation. The medical record indicates that the patient was admitted with acute exacerbation of COPD, then on the 7th: "Acute on chronic diastolic CHF ( congestive heart failure)", BNP of 86#" X-ray on the 4th: "Superimposed pneumonia at both lung bases, worse on the right, with associated pleural effusion" and the patient was treated with IV Lasix. Diagnosis: Acute on chronic diastolic CHF Please clarify the following: ( x) The above diagnosis was monitored, evaluated, and/or treated and is a confirmed diagnosis ( ) The above diagnosis was ruled out ( ) The above diagnosis is still a likely, suspected, probable diagnosis ( ) Other, please specify: ( ) Clinically unable to determine COMMENTS: PLEASE ALSO DOCUMENT RESPONSE IN PROGRESS NOTES AND/OR DISCHARGE SUMMARY Use of terms such as suspected, likely, or probable (associated with a specific diagnosis that is being evaluated, monitored, or treated as if it exists) are acceptable and can be restated in the discharge summary if not ruled out. MTDD
--- NOTE | 2017-02-04 10:48 | Discharge Summary ---
Hospital Course - Hospital Course Hospital Course: Mr. Noe is a 61 year old black male with a history of htn, copd, BPH, and TYSON that presented to the ED with complaints of shortness of breath and cough. Pt. stated that had been going on for the past 5 days. Pt. also reported fever, chills, dizziness, and swelling in lower extremities. Pt. stated that he is a former smoker. He stopped almost 30 yrs ago after having an XR performed that showed he had "bad lungs". Pt. 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 He is seen by SEPIDEH Oswald at the [place] [facility]. Pt. is visibly short of breath in the ED and is in mild distress. CXR showed superimposed pneumonia in addition to a left hiliar mass. Pt. is also found to be hypokalemic at 2.9. Patient was admitted to the hospitalist service for acute exacerbation of COPD and pneumonia. He was initially admitted to the intensive care unit for close monitoring. He was started on IV steroids, breathing treatments, levaquin and zosyn. Pulmonary was consulted. CT chest with bullous emphysema and an infected bulla in the right upper lobe. His remaining hospital course was uneventful, with slow improvement. He has now completed a course of antibiotics for pneumonia. He has now reached maximal benefit of inpatient stay and will be discharged home. He will follow-up at the [place] [facility]. - Time spent with patient Time with patient DS: Greater than 30 minutes (35) Diagnosis - Discharge Diagnosis (1) Acute exacerbation of chronic obstructive airways disease Status: Resolved (2) Pneumonia Status: Resolved (3) Hypokalemia Status: Resolved Discharge Plan - Discharge Data Disposition: Disch To Home/Self Care Condition at Discharge: Stable Discharge Diet: advance to your usual diet Activity: increase activity as tolerated Hygiene: no restrictions Weight Bearing at Discharge: weight bear as tolerated Contact your physician if you experience:: fever over 101, Shortness of breath - Discharge Medications New Carvedilol [Coreg] 6.25 mg PO BID W/MEALS #60 tablet predniSONE TAB [PredniSONE] 20 mg PO DAILY #28 tablet Continue Lisinopril 40 mg PO DAILY Thiamine HCl 100 mg PO DAILY amLODIPine [Norvasc] 10 mg PO DAILY Cetirizine HCl [Cetirizine Tab] 10 mg PO DAILY Discontinued Spironolactone 50 mg PO DAILY Metoprolol Tartrate Tab [Lopressor Tab] 50 mg PO BID - Follow Up or Referral - Forms/Instructions Exam - Constitutional Vitals: Period Temp Pulse Resp BP Sys/Melendez Pulse Ox Last 24 Hr 96.5 F-98.3 F 54-89 16-22 145-164/82-96 90-100 General appearance: over weight - Head Head exam: Present: normocephalic, atraumatic - Eye Eye exam: Present: EOMI Pupils: Present: TALAT - ENT ENT exam: Present: normal exam - Neck Neck exam: Present: normal inspection - Respiratory Respiratory exam: Present: clear to auscultation bilaterally. Absent: rhonchi, wheezes - Cardiovascular Cardiovascular exam: Present: regular rate and rhythm - GI/Abdominal GI/Abdominal exam: Present: normal bowel sounds, soft. Absent: tenderness, rebound - Extremities Exam Extremities exam: Present: normal inspection - Back Exam Back exam: Present: normal inspection - Neurological Exam Neurological exam: Present: alert, oriented X3 - Psychiatric Psychiatric exam: Present: normal affect, normal mood - Skin Skin exam: Present: warm, intact Discharge Results Procedures and tests throughout hospitalization: Pending Orders 01/29/17 18:13 Legionella Ag, Urine Stat Sputum Culture and Gram Stain Stat Streptococcus pneumoniae Ag, U Stat 02/05/17 04:00 CBC [Comp Blood Count Auto Diff] IN AM 02/06/17 04:00 CBC [Comp Blood Count Auto Diff] IN AM Labs on day of discharge: Labs from last 24 hours 02/04/17 05:37 WBC 8.0 RBC 4.31 Hgb 11.8 L Hct 37.0 L MCV 85.8 L MCH 27 MCHC 31.9 L RDW 13.4 Plt Count 220 MPV 11.8 Neut % (Auto) 62.7 Lymph % (Auto) 25.5 Brooks % (Auto) 10.1 Eos % (Auto) 0.4 Baso % (Auto) 0.0 Neut # (Auto) 5.0 Lymph # (Auto) 2.0 Brooks # (Auto) 0.8 Eos # (Auto) 0.0 Baso # (Auto) 0.0 Immature Gran % 1.3 Nucleated RBC % 0.0 Immature Gran # 0.10 Nucleated RBCs # 0.00 DS: Provider Date of admission: 01/29/17 16:27 Primary care physician: Nonstaff Physician Attending physician on admission: Zack Doherty MD Consults: 01/29/17 18:07 Consult to Sleep Center [CONS] Routine Reason for Sleep Center: Sleep Center Physician Consult Comment: severe tyson 01/29/17 18:13 Consult to Physician [CONS] Routine Comment: bilateral pneumonia Consulting Provider: Roberto Stinson When should Consulting Provider be notified: Now 01/30/17 09:01 Consult to Case Mgmt/Social Srvs [CONS] Routine Reason for Case Mgmt/Social Srvs: Other Consult Comment: home O2 Discharging clinician: Pino Herrera MD
[2017-02-04 12:30] VITALS: BP 149/94
== END 2017-02-04 14:45 | disposition home or self-care (01) | DRG 190 ==
LOC: N.ED 14:18 → N.EDINP 16:27 → SUATTDRO 16:27 → N.CC 17:00 → N.2E 01-30 10:42
PROVIDERS: ADMIT Internal Medicine; ATTEND Internal Medicine

== ENCOUNTER 2017-12-05 22:37 | Inpatient (IN) ==
[2017-12-05] MEDS ORDERED: MORPHINE 4 MG/1 ML VIAL IV STA (23:29)
[2017-12-05] MEDS ORDERED: ONDANSETRON 4 MG/2 ML VIAL IV STA (23:29)
[2017-12-05] MEDS ORDERED: FUROSEMIDE 100 MG/10 ML VIAL IV STA (23:29)
[2017-12-05] MEDS ORDERED: methylPREDNISolone SOD SUC 125 MG/2 ML VIAL IV STA (23:29)
[2017-12-05] MEDS ORDERED: ALBUTEROL 2.5 MG/3 ML NEB RESP TX SCH (23:30)
[2017-12-06 00:07] LABS: ABG Base Excess 10.7 MMOL/L (-2.5-2.5); ABG HCO3 35.9 MMOL/L (20-26); ABG Oxygen Saturation 87.5 % (95-100); ABG PCO2 49.7 MM HG (35-48); ABG PH 7.477 (7.35-7.45); ABG PO2 59.2 MM HG (80-95); ABG TCO2 37.5 MMOL/L (23-27); Allen Test Positive
[2017-12-06 00:12] LABS: Basophils # 0.1 10*3/uL (0.0-0.2); Basophils % 0.4 % (0.0-0.8); Eosinophils % 0.4 % (0.00-10.9); Hematocrit 41.2 VOL% (42.0-52.0); Hemoglobin 12.7 GM/DL (14.0-18.0); Immature Granulocytes % 0.4 %; Immature Granulocytes Absolute 0.05 #; Lymphocytes # 1.4 10*3/uL (1.4-4.0); Mean Corpuscular HGB Conc 30.8 GM/DL (32-36); Mean Corpuscular Hemoglobin 27 PG (27-34); Mean Corpuscular Volume 87.7 FL (87-102); Mean Platelet Volume 12.5 FL (9.6-12.0); Monocytes # 1.3 10*3/uL (0.11-0.8); Monocytes % 11.8 % (1.7-12.7); Neutrophils # 8.4 10*3/uL (1.4-7.4); Platelet Count 209 T/CUMM (130-400); White Blood Count 11.3 T/CUMM (4-12)
[2017-12-06 00:25] LABS: Albumin 3.3 G/DL (3.4-5.0); Bilirubin,Total 1.5 MG/DL (0.2-1.0); Calcium 9.2 MG/DL (8.5-10.1); Osmolality,Calculated 279.5 MOS/KG (273-304); Potassium 2.8 MMOL/L (3.5-5.1); Total Protein 9.1 G/DL (6.4-8.3); Troponin I Only 0.016 NG/ML (0.00-0.045)
[2017-12-06] MEDS ORDERED: ENOXAPARIN 100 MG/ML SYRINGE SUBCUT STA (00:48)
[2017-12-06] MEDS ORDERED: POTASSIUM CHLORIDE 20 MEQ TABLET PO STA (00:48)
[2017-12-06] MEDS ORDERED: SODIUM BICARBONATE 50 MEQ/50 ML VIAL IV STA (00:49)
[2017-12-06] MEDS ORDERED: ACETYLCYSTEINE 600 MG CAPSULE PO STA (00:49)
[2017-12-06] MEDS ORDERED: ENOXAPARIN 120 MG/0.8 ML SYRINGE SUBCUT ONE (01:04)
[2017-12-06] MEDS ORDERED: SODIUM BICARBONATE 50 MEQ/50 ML SYRINGE IV ONE (01:04)
[2017-12-06] MEDS ORDERED: ENOXAPARIN 120 MG/0.8 ML SYRINGE SUBCUT STA (01:10)
[2017-12-06] MEDS ORDERED: ACETAMINOPHEN 325 MG TABLET PO PRN (03:13)
[2017-12-06] MEDS ORDERED: MORPHINE 4 MG/1 ML VIAL IV PRN (03:13)
[2017-12-06] MEDS ORDERED: ALBUTEROL 2.5 MG/3 ML NEB RESP TX PRN (03:13)
[2017-12-06] MEDS ORDERED: ONDANSETRON 4 MG/2 ML VIAL IV PRN (03:13)
[2017-12-06] MEDS ORDERED: guaiFENesin/DM ER 600-30 MG TABLET PO PRN (03:13)
[2017-12-06 03:47] LABS: ABG Base Excess 7.7 MMOL/L (-2.5-2.5); ABG HCO3 31.4 MMOL/L (20-26); ABG Oxygen Saturation 95.4 % (95-100); ABG PCO2 61.3 MM HG (35-48); ABG PH 7.368 (7.35-7.45); ABG PO2 84.1 MM HG (80-95); ABG TCO2 31.3 MMOL/L (23-27)
[2017-12-06] MEDS: LEVOFLOXACIN INJ 500 MG in PREMIX 1 EACH IV SCH (03:50)
[2017-12-06] MEDS: PHENAZOPYRIDINE 95 MG TABLET PO SCH ×3 (04:35→22:02)
[2017-12-06 04:39] LABS: Basophils % 0.4 % (0.0-0.8); Eosinophils % 0.1 % (0.00-10.9); Hematocrit 40.4 VOL% (42.0-52.0); Hemoglobin 12.1 GM/DL (14.0-18.0); Immature Granulocytes % 0.4 %; Immature Granulocytes Absolute 0.03 #; Lymphocytes # 0.4 10*3/uL (1.4-4.0); Lymphocytes % 5.2 % (21.2-54.2); Mean Corpuscular Hemoglobin 26 PG (27-34); Mean Platelet Volume 12.8 FL (9.6-12.0); Monocytes # 0.2 10*3/uL (0.11-0.8); Monocytes % 2.5 % (1.7-12.7); Neutrophils # 7.7 10*3/uL (1.4-7.4); Neutrophils % 91.4 % (38.7-73.9); Platelet Count 188 T/CUMM (130-400); Red Blood Count 4.59 MC/CUMM (3.8-5.5); Red Cell Distribution Width 14.1 % (9.3-17.3); White Blood Count 8.4 T/CUMM (4-12)
[2017-12-06 05:02] LABS: Lymphocytes 3 % (20-55); Polychromasia Few; Segmented Neutrophils 95 % (50-85); Total Cells Counted 100
[2017-12-06 05:03] LABS: Hypochromasia Slight; Spherocytes Slight
[2017-12-06 05:04] LABS: Platelet Estimate Adequate
[2017-12-06 05:33] LABS: Albumin 3.2 G/DL (3.4-5.0); Bilirubin,Total 1.9 MG/DL (0.2-1.0); Calcium 8.4 MG/DL (8.5-10.1); Osmolality,Calculated 282.5 MOS/KG (273-304); Potassium 2.6 MMOL/L (3.5-5.1); Total Protein 8.2 G/DL (6.4-8.3); Troponin I Only 0.029 NG/ML (0.00-0.045)
[2017-12-06 06:35] LABS: Apearance,Urine CLEAR (Clear); Bacteria,Urine Occasional /HPF (Few); Bilirubin,Urine Negative (Negative); Blood, Urine Negative (Negative); Glucose,Urine (UA) Negative (Negative); Hyaline Casts,Urine 1 /LPF (0-3); Ketones,Urine Negative (Negative); Mucus,Urine Occasional /LPF (Occasional); Nitrite,Urine Negative (Negative); Protein,Urine 30 MG/DL; RBC,Urine 2 /HPF (0-4); Squamous Epithelial Cell,Urine Occasional /HPF (0-10); Urine Color Yellow (Yellow); Urine Specific Gravity 1.012 (1.001-1.035); Urine Urobilinogen < 2.0 EU/DL (0.2-1.0); WBC,Urine 11 /HPF (0-6)
[2017-12-06] MEDS ORDERED: POTASSIUM CHLORIDE INJ 50 MEQ in SODIUM CHLORIDE 0.9% 500 ML IV ONE (07:00)
[2017-12-06] MEDS: ALBUTEROL/IPRATROPIUM 3 ML NEB RESP TX SCH ×3 (07:54→20:25)
[2017-12-06] MEDS: FUROSEMIDE 40 MG/4 ML VIAL IV SCH ×2 (09:07→17:17)
[2017-12-06] MEDS: CARVEDILOL 6.25 MG TABLET PO SCH ×2 (09:08→17:17)
[2017-12-06] MEDS: LISINOPRIL 20 MG TABLET PO SCH (09:08)
[2017-12-06] MEDS: OMEGA 3 ACID ETHYL ESTERS 1 GM CAPSULE PO SCH (09:08)
[2017-12-06] MEDS: amLODIPine 10 MG TABLET PO SCH (09:08)
[2017-12-06] MEDS: CETIRIZINE 10 MG TABLET PO SCH (09:08)
[2017-12-06] MEDS: ENOXAPARIN 120 MG/0.8 ML SYRINGE SUBCUT SCH (14:09)
[2017-12-06] MEDS: CEFEPIME 1,000 MG in SYRINGE 1 EACH IV SCH (14:09)
[2017-12-06] MEDS: POTASSIUM CHLORIDE RIDER 10 MEQ in PREMIX 1 EACH IV PRN (23:09)
[2017-12-06] MEDS: methylPREDNISolone SOD SUC 125 MG/2 ML VIAL IV SCH (23:24)
[2017-12-07] MEDS: POTASSIUM CHLORIDE RIDER 10 MEQ in PREMIX 1 EACH IV PRN ×2 (00:23→01:29)
[2017-12-07] MEDS: ALBUTEROL/IPRATROPIUM 3 ML NEB RESP TX SCH ×4 (01:20→20:02)
[2017-12-07] MEDS: CEFEPIME 1,000 MG in SYRINGE 1 EACH IV SCH ×2 (02:53→13:40)
[2017-12-07] MEDS: ENOXAPARIN 120 MG/0.8 ML SYRINGE SUBCUT SCH ×2 (02:58→13:39)
[2017-12-07] MEDS: LEVOFLOXACIN INJ 500 MG in PREMIX 1 EACH IV SCH (03:32)
[2017-12-07 08:15] LABS: Basophils % 0.1 % (0.0-0.8); Hematocrit 39.6 VOL% (42.0-52.0); Hemoglobin 12.3 GM/DL (14.0-18.0); Immature Granulocytes % 1.4 %; Immature Granulocytes Absolute 0.16 #; Lymphocytes # 1.1 10*3/uL (1.4-4.0); Lymphocytes % 9.3 % (21.2-54.2); Mean Corpuscular HGB Conc 31.1 GM/DL (32-36); Mean Corpuscular Hemoglobin 27 PG (27-34); Mean Corpuscular Volume 87.2 FL (87-102); Mean Platelet Volume 12.7 FL (9.6-12.0); Monocytes # 0.7 10*3/uL (0.11-0.8); Monocytes % 6.3 % (1.7-12.7); Neutrophils # 9.5 10*3/uL (1.4-7.4); Neutrophils % 82.9 % (38.7-73.9); Platelet Count 206 T/CUMM (130-400); Red Blood Count 4.54 MC/CUMM (3.8-5.5); Red Cell Distribution Width 14.1 % (9.3-17.3); White Blood Count 11.5 T/CUMM (4-12)
[2017-12-07 08:46] LABS: Calcium 9.3 MG/DL (8.5-10.1); Osmolality,Calculated 287.4 MOS/KG (273-304); Potassium 4.5 MMOL/L (3.5-5.1)
[2017-12-07] MEDS: OMEGA 3 ACID ETHYL ESTERS 1 GM CAPSULE PO SCH (09:15)
[2017-12-07] MEDS: LISINOPRIL 20 MG TABLET PO SCH (09:15)
[2017-12-07] MEDS: amLODIPine 10 MG TABLET PO SCH (09:15)
[2017-12-07] MEDS: FUROSEMIDE 40 MG/4 ML VIAL IV SCH ×2 (09:16→16:08)
[2017-12-07] MEDS: CARVEDILOL 6.25 MG TABLET PO SCH ×2 (09:16→16:08)
[2017-12-07] MEDS: CETIRIZINE 10 MG TABLET PO SCH (09:16)
[2017-12-07] MEDS: PHENAZOPYRIDINE 95 MG TABLET PO SCH ×2 (10:05→20:42)
[2017-12-07] MEDS: methylPREDNISolone SOD SUC 125 MG/2 ML VIAL IV SCH (12:02)
[2017-12-08] MEDS: ALBUTEROL/IPRATROPIUM 3 ML NEB RESP TX SCH ×4 (00:22→19:09)
[2017-12-08] MEDS: methylPREDNISolone SOD SUC 125 MG/2 ML VIAL IV SCH ×2 (00:34→12:41)
[2017-12-08] MEDS: CEFEPIME 1,000 MG in SYRINGE 1 EACH IV SCH ×2 (00:37→12:51)
[2017-12-08] MEDS: ENOXAPARIN 120 MG/0.8 ML SYRINGE SUBCUT SCH (00:44)
[2017-12-08] MEDS: LEVOFLOXACIN INJ 500 MG in PREMIX 1 EACH IV SCH (03:43)
[2017-12-08 06:55] LABS: Basophils % 0.1 % (0.0-0.8); Hematocrit 37.2 VOL% (42.0-52.0); Hemoglobin 11.5 GM/DL (14.0-18.0); Immature Granulocytes % 0.6 %; Immature Granulocytes Absolute 0.06 #; Lymphocytes # 0.8 10*3/uL (1.4-4.0); Lymphocytes % 8.6 % (21.2-54.2); Mean Corpuscular HGB Conc 30.9 GM/DL (32-36); Mean Corpuscular Hemoglobin 27 PG (27-34); Mean Corpuscular Volume 87.3 FL (87-102); Mean Platelet Volume 12.9 FL (9.6-12.0); Monocytes # 0.5 10*3/uL (0.11-0.8); Monocytes % 5.3 % (1.7-12.7); Neutrophils % 85.4 % (38.7-73.9); Platelet Count 218 T/CUMM (130-400); Red Blood Count 4.26 MC/CUMM (3.8-5.5); White Blood Count 9.4 T/CUMM (4-12)
[2017-12-08 07:22] LABS: Calcium 8.6 MG/DL (8.5-10.1); Osmolality,Calculated 291.1 MOS/KG (273-304); Potassium 3.5 MMOL/L (3.5-5.1)
[2017-12-08] MEDS: amLODIPine 10 MG TABLET PO SCH (12:36)
[2017-12-08] MEDS: CARVEDILOL 6.25 MG TABLET PO SCH ×2 (12:36→19:04)
[2017-12-08] MEDS: OMEGA 3 ACID ETHYL ESTERS 1 GM CAPSULE PO SCH (12:36)
[2017-12-08] MEDS: LISINOPRIL 20 MG TABLET PO SCH (12:36)
[2017-12-08] MEDS: CETIRIZINE 10 MG TABLET PO SCH (12:36)
[2017-12-08] MEDS: FUROSEMIDE 40 MG/4 ML VIAL IV SCH ×2 (12:37→19:04)
[2017-12-08] MEDS: PHENAZOPYRIDINE 95 MG TABLET PO SCH ×2 (12:38→20:21)
[2017-12-09] MEDS: methylPREDNISolone SOD SUC 125 MG/2 ML VIAL IV SCH ×2 (00:54→11:06)
[2017-12-09] MEDS: CEFEPIME 1,000 MG in SYRINGE 1 EACH IV SCH ×2 (00:56→13:48)
[2017-12-09] MEDS: ALBUTEROL/IPRATROPIUM 3 ML NEB RESP TX SCH ×4 (01:04→19:41)
[2017-12-09] MEDS: LEVOFLOXACIN INJ 500 MG in PREMIX 1 EACH IV SCH (03:34)
[2017-12-09] MEDS: LISINOPRIL 20 MG TABLET PO SCH (09:44)
[2017-12-09] MEDS: OMEGA 3 ACID ETHYL ESTERS 1 GM CAPSULE PO SCH (09:45)
[2017-12-09] MEDS: CETIRIZINE 10 MG TABLET PO SCH (09:45)
[2017-12-09] MEDS: CARVEDILOL 6.25 MG TABLET PO SCH ×2 (09:45→16:45)
[2017-12-09] MEDS: FUROSEMIDE 40 MG/4 ML VIAL IV SCH ×2 (09:45→16:45)
[2017-12-09] MEDS: amLODIPine 10 MG TABLET PO SCH (09:45)
[2017-12-09] MEDS: ENOXAPARIN 30 MG/0.3 ML SYRINGE SUBCUT SCH (11:08)
[2017-12-09 11:14] LABS: Basophils % 0.1 % (0.0-0.8); Hematocrit 40.4 VOL% (42.0-52.0); Hemoglobin 12.2 GM/DL (14.0-18.0); Immature Granulocytes % 2.3 %; Immature Granulocytes Absolute 0.16 #; Lymphocytes # 0.6 10*3/uL (1.4-4.0); Lymphocytes % 8.8 % (21.2-54.2); Mean Corpuscular HGB Conc 30.2 GM/DL (32-36); Mean Corpuscular Hemoglobin 26 PG (27-34); Mean Corpuscular Volume 87.3 FL (87-102); Monocytes # 0.6 10*3/uL (0.11-0.8); Monocytes % 8.8 % (1.7-12.7); Neutrophils # 5.7 10*3/uL (1.4-7.4); Platelet Count 239 T/CUMM (130-400); Red Blood Count 4.63 MC/CUMM (3.8-5.5); Red Cell Distribution Width 13.9 % (9.3-17.3); White Blood Count 7.1 T/CUMM (4-12)
[2017-12-09 11:47] LABS: Calcium 8.6 MG/DL (8.5-10.1); Osmolality,Calculated 293.4 MOS/KG (273-304); Potassium 2.7 MMOL/L (3.5-5.1)
[2017-12-09] MEDS ORDERED: methylPREDNISolone SOD SUC 40 MG/1 ML VIAL IV SCH (21:00)
[2017-12-10] MEDS: ALBUTEROL/IPRATROPIUM 3 ML NEB RESP TX SCH ×4 (00:42→19:55)
[2017-12-10] MEDS: CEFEPIME 1,000 MG in SYRINGE 1 EACH IV SCH (01:01)
[2017-12-10] MEDS: LEVOFLOXACIN INJ 500 MG in PREMIX 1 EACH IV SCH (03:02)
[2017-12-10 05:39] LABS: Calcium 8.6 MG/DL (8.5-10.1); Potassium 3.2 MMOL/L (3.5-5.1)
[2017-12-10] MEDS: amLODIPine 10 MG TABLET PO SCH (09:47)
[2017-12-10] MEDS: CETIRIZINE 10 MG TABLET PO SCH (09:47)
[2017-12-10] MEDS: LISINOPRIL 20 MG TABLET PO SCH (09:47)
[2017-12-10] MEDS: FUROSEMIDE 40 MG/4 ML VIAL IV SCH (09:47)
[2017-12-10] MEDS: OMEGA 3 ACID ETHYL ESTERS 1 GM CAPSULE PO SCH (09:47)
[2017-12-10] MEDS: CARVEDILOL 6.25 MG TABLET PO SCH ×2 (09:47→17:45)
[2017-12-10] MEDS ORDERED: POTASSIUM CHLORIDE 20 MEQ TABLET PO ONE (09:53)
[2017-12-10] MEDS: ENOXAPARIN 30 MG/0.3 ML SYRINGE SUBCUT SCH (11:07)
[2017-12-10] MEDS: POTASSIUM CHLORIDE RIDER 10 MEQ in PREMIX 1 EACH IV SCH ×4 (14:44→18:00)
[2017-12-10] MEDS: hydrALAZINE 25 MG TABLET PO SCH ×2 (15:31→20:23)
[2017-12-10] MEDS: FUROSEMIDE 40 MG TABLET PO SCH (15:31)
[2017-12-11] MEDS: ALBUTEROL/IPRATROPIUM 3 ML NEB RESP TX SCH ×4 (01:21→19:30)
[2017-12-11 05:55] LABS: Basophils % 0.1 % (0.0-0.8); Eosinophils % 0.5 % (0.00-10.9); Hematocrit 41.1 VOL% (42.0-52.0); Hemoglobin 12.8 GM/DL (14.0-18.0); Immature Granulocytes % 1.9 %; Immature Granulocytes Absolute 0.15 #; Lymphocytes # 2.3 10*3/uL (1.4-4.0); Lymphocytes % 28.6 % (21.2-54.2); Mean Corpuscular HGB Conc 31.1 GM/DL (32-36); Mean Corpuscular Hemoglobin 27 PG (27-34); Mean Corpuscular Volume 87.1 FL (87-102); Mean Platelet Volume 11.9 FL (9.6-12.0); Monocytes # 0.9 10*3/uL (0.11-0.8); Monocytes % 11.4 % (1.7-12.7); NRBC # 0.03 10*3/uL; Neutrophils # 4.6 10*3/uL (1.4-7.4); Neutrophils % 57.5 % (38.7-73.9); Platelet Count 227 T/CUMM (130-400); Red Blood Count 4.72 MC/CUMM (3.8-5.5)
[2017-12-11 06:08] LABS: Albumin 2.9 G/DL (3.4-5.0); Bilirubin,Total 1.3 MG/DL (0.2-1.0); Calcium 8.3 MG/DL (8.5-10.1); Osmolality,Calculated 290.7 MOS/KG (273-304); Potassium 2.9 MMOL/L (3.5-5.1); Total Protein 7.2 G/DL (6.4-8.3)
[2017-12-11] MEDS ORDERED: POTASSIUM CHLORIDE 20 MEQ TABLET PO ONE ×2 (07:03→15:00)
[2017-12-11] MEDS ORDERED: POTASSIUM CHLORIDE IV ONE (07:21)
[2017-12-11] MEDS: hydrALAZINE 25 MG TABLET PO SCH ×3 (11:06→21:05)
[2017-12-11] MEDS: LISINOPRIL 20 MG TABLET PO SCH (11:06)
[2017-12-11] MEDS: OMEGA 3 ACID ETHYL ESTERS 1 GM CAPSULE PO SCH (11:06)
[2017-12-11] MEDS: LEVOFLOXACIN 500 MG TABLET PO SCH (11:06)
[2017-12-11] MEDS: amLODIPine 10 MG TABLET PO SCH (11:06)
[2017-12-11] MEDS: CARVEDILOL 6.25 MG TABLET PO SCH ×2 (11:07→18:35)
[2017-12-11] MEDS: ENOXAPARIN 30 MG/0.3 ML SYRINGE SUBCUT SCH (11:07)
[2017-12-11] MEDS: FUROSEMIDE 40 MG TABLET PO SCH ×2 (11:07→18:35)
[2017-12-11] MEDS: predniSONE 20 MG TABLET PO SCH (11:07)
[2017-12-11] MEDS: CETIRIZINE 10 MG TABLET PO SCH (11:07)
[2017-12-11] MEDS: POTASSIUM CHLORIDE RIDER 10 MEQ in PREMIX 1 EACH IV SCH ×2 (11:56→11:57)
[2017-12-12] MEDS: ALBUTEROL/IPRATROPIUM 3 ML NEB RESP TX SCH ×3 (00:27→14:17)
[2017-12-12] MEDS: OMEGA 3 ACID ETHYL ESTERS 1 GM CAPSULE PO SCH (08:55)
[2017-12-12] MEDS: LISINOPRIL 20 MG TABLET PO SCH (08:56)
[2017-12-12] MEDS: POTASSIUM CHLORIDE 20 MEQ TABLET PO SCH (08:56)
[2017-12-12] MEDS: LEVOFLOXACIN 500 MG TABLET PO SCH (08:56)
[2017-12-12] MEDS: CETIRIZINE 10 MG TABLET PO SCH (08:56)
[2017-12-12] MEDS: predniSONE 20 MG TABLET PO SCH (08:57)
[2017-12-12] MEDS: FUROSEMIDE 40 MG TABLET PO SCH ×2 (08:57→17:36)
[2017-12-12] MEDS: hydrALAZINE 25 MG TABLET PO SCH ×2 (08:57→17:44)
[2017-12-12] MEDS: CARVEDILOL 6.25 MG TABLET PO SCH ×2 (08:57→17:36)
[2017-12-12] MEDS: amLODIPine 10 MG TABLET PO SCH (08:57)
[2017-12-12] MEDS: ENOXAPARIN 30 MG/0.3 ML SYRINGE SUBCUT SCH (10:39)
[2017-12-12] MEDS: POTASSIUM CHLORIDE RIDER 10 MEQ in PREMIX 1 EACH IV SCH ×2 (16:35→17:35)
[2017-12-13] MEDS ORDERED: POTASSIUM CHLORIDE 20 MEQ TABLET PO ONE ×3 (00:20→12:49)
[2017-12-13] MEDS: ALBUTEROL/IPRATROPIUM 3 ML NEB RESP TX SCH ×3 (00:23→15:00)
[2017-12-13 04:54] LABS: Calcium 8.3 MG/DL (8.5-10.1); Osmolality,Calculated 284.1 MOS/KG (273-304); Potassium 2.8 MMOL/L (3.5-5.1)
[2017-12-13] MEDS ORDERED: MAGNESIUM SULF RIDER 4 GM in PREMIX 1 EACH IV ONE (05:25)
[2017-12-13] MEDS: FUROSEMIDE 40 MG TABLET PO SCH (08:26)
[2017-12-13] MEDS: POTASSIUM CHLORIDE 20 MEQ TABLET PO SCH (09:44)
[2017-12-13] MEDS: OMEGA 3 ACID ETHYL ESTERS 1 GM CAPSULE PO SCH (09:44)
[2017-12-13] MEDS: LISINOPRIL 20 MG TABLET PO SCH (09:45)
[2017-12-13] MEDS: predniSONE 20 MG TABLET PO SCH (09:45)
[2017-12-13] MEDS: amLODIPine 10 MG TABLET PO SCH (09:46)
[2017-12-13] MEDS: CARVEDILOL 6.25 MG TABLET PO SCH (09:46)
[2017-12-13] MEDS: CETIRIZINE 10 MG TABLET PO SCH (09:46)
[2017-12-13] MEDS: LEVOFLOXACIN 500 MG TABLET PO SCH (09:47)
[2017-12-13] MEDS: ENOXAPARIN 30 MG/0.3 ML SYRINGE SUBCUT SCH (09:47)
[2017-12-13 12:16] VITALS: BP 137/87
== END 2017-12-13 15:10 | disposition home or self-care (01) | DRG 190 ==
LOC: N.ED 22:37 → N.EDINP 12-06 02:27 → SUATTDRO 12-06 02:27 → N.ICU 12-06 02:52 → N.4E 12-06 15:32
PROVIDERS: ADMIT Family Medicine; ATTEND Internal Medicine Infectious Disease

== ENCOUNTER 2022-03-17 18:15 | Inpatient (IN) ==
[2022-03-17] MEDS ORDERED: methylPREDNISolone SOD SUC 125 MG/2 ML VIAL IV STA (19:23)
[2022-03-17] MEDS ORDERED: ALBUTEROL/IPRATROPIUM 3 ML NEB RESP TX STA (19:23)
[2022-03-17 19:43] LABS: Basophils % 0.3 % (0.0-0.8); Hematocrit 44.7 VOL% (42.0-52.0); Hemoglobin 13.6 GM/DL (14.0-18.0); Immature Granulocytes % 0.5 %; Immature Granulocytes Absolute 0.08 #; Lymphocytes # 0.4 10*3/uL (1.4-4.0); Lymphocytes % 2.8 % (21.2-54.2); Mean Corpuscular HGB Conc 30.4 GM/DL (32-36); Mean Platelet Volume 13.4 FL (9.6-12.0); Monocytes # 1.7 10*3/uL (0.11-0.8); Monocytes % 10.8 % (1.7-12.7); Neutrophils % 85.6 % (38.7-73.9); Platelet Count 140 T/CUMM (130-400); Red Blood Count 5.08 MC/CUMM (3.8-5.5); Red Cell Distribution Width 13.4 % (9.3-17.3); White Blood Count 15.8 T/CUMM (4-12)
[2022-03-17 20:02] LABS: Albumin 3.2 G/DL (3.4-5.0); Bilirubin,Total 2.8 MG/DL (0.20-1.00); Calcium 10.1 MG/DL (8.5-10.1); Osmolality,Calculated 279.7 MOS/KG (273-304); Total Protein 9.1 G/DL (6.4-8.2)
[2022-03-17 20:28] LABS: Band Neutrophils 9 % (0-10); Hypochromia 1+; Lymphocytes 3 % (20-55); Platelet Estimate Decreased; Total Cells Counted 100
[2022-03-17] MEDS ORDERED: cefTRIAXone 1,000 MG in SODIUM CHLORIDE 0.9% 100 ML IV STA (20:43)
[2022-03-17] MEDS ORDERED: ENOXAPARIN 100 MG/ML SYRINGE SUBCUT ONE (20:50)
[2022-03-17 20:57] LABS: ABG Base Excess 1.4 MMOL/L (-2.5-2.5); ABG HCO3 25.5 MMOL/L (20-26); ABG Oxygen Saturation 90.1 % (95-100); ABG PCO2 49.2 MM HG (35-48); ABG PH 7.359 (7.35-7.45); ABG PO2 63.7 MM HG (80-95); ABG TCO2 24.2 MMOL/L (23-27)
[2022-03-17] MEDS ORDERED: diphenhydrAMINE CAP 25 MG CAPSULE PO PRN (22:09)
[2022-03-17] MEDS ORDERED: ZALEPLON 5 MG CAPSULE PO PRN (22:09)
[2022-03-17] MEDS ORDERED: guaiFENesin/DM ER 600-30 MG TABLET PO PRN (22:09)
[2022-03-17] MEDS ORDERED: MORPHINE 2 MG/1 ML SYRINGE IV PRN (22:09)
[2022-03-17] MEDS ORDERED: GLUCAGON 1 MG VIAL IM PRN ×2 (22:09)
[2022-03-17] MEDS ORDERED: hydrALAZINE 20 MG/1 ML VIAL IV PRN (22:09)
[2022-03-17] MEDS ORDERED: NICOTINE 21 MG/24 HR PATCH TRANSDERM PRN (22:09)
[2022-03-17] MEDS ORDERED: ONDANSETRON 4 MG/2 ML VIAL IV PRN (22:09)
[2022-03-17] MEDS ORDERED: DEXTROSE 50% 25 GM/50 ML VIAL IV PRN (22:09)
[2022-03-17] MEDS ORDERED: ACETAMINOPHEN 325 MG TABLET PO PRN (22:09)
[2022-03-17] MEDS ORDERED: SODIUM CHLORIDE 0.9% 2,000 ML IV STA (22:11)
[2022-03-17] MEDS ORDERED: DEXTROSE 10% 250 ML BAG IV PRN (22:18)
[2022-03-17] MEDS ORDERED: VANCOMYCIN INJ 1,000 MG in SODIUM CHLORIDE 0.9% 250 ML IV SCH (22:30)
[2022-03-17] MEDS: AZITHROMYCIN INJ 500 MG in SODIUM CHLORIDE 0.9% 250 ML IV SCH (22:33)
[2022-03-17] MEDS: ALBUTEROL/IPRATROPIUM 3 ML NEB RESP TX SCH (23:19)
[2022-03-18] MEDS ORDERED: VANCOMYCIN INJ 2,000 MG in SODIUM CHLORIDE 0.9% 500 ML IV SCH (01:00)
[2022-03-18 02:58] LABS: Arterial Base Excess iSTAT -1 MMOL/L (-2.5-2.5); Arterial Bicarbonate iSTAT 25.1 MMOL/L (20-26); Arterial O2 Saturation iSTAT 89 % (95-100); Arterial PCO2 iSTAT 48 MM HG (35-48); Arterial PO2 iSTAT 61 MM HG (80-95); Arterial Total CO2 iSTAT 27 MMO/L (23-27); Arterial pH iSTAT 7.327 (7.35-7.45)
[2022-03-18 05:32] LABS: Basophils % 0.1 % (0.0-0.8); Hematocrit 42.3 VOL% (42.0-52.0); Hemoglobin 12.8 GM/DL (14.0-18.0); Immature Granulocytes % 0.7 %; Immature Granulocytes Absolute 0.13 #; Lymphocytes # 0.7 10*3/uL (1.4-4.0); Lymphocytes % 4.2 % (21.2-54.2); Mean Corpuscular HGB Conc 30.3 GM/DL (32-36); Mean Corpuscular Volume 89.1 FL (87-102); Mean Platelet Volume 13.7 FL (9.6-12.0); Monocytes # 1.3 10*3/uL (0.11-0.8); Monocytes % 7.6 % (1.7-12.7); Neutrophils % 87.4 % (38.7-73.9); Platelet Count 130 T/CUMM (130-400); Red Blood Count 4.75 MC/CUMM (3.8-5.5); Red Cell Distribution Width 13.6 % (9.3-17.3); White Blood Count 17.4 T/CUMM (4-12)
[2022-03-18 05:53] LABS: Calcium 9.6 MG/DL (8.5-10.1); Osmolality,Calculated 286.5 MOS/KG (273-304); Potassium 4.6 MMOL/L (3.5-5.1)
[2022-03-18 06:52] LABS: Band Neutrophils 1 % (0-10); Lymphocytes 3 % (20-55); Platelet Estimate Adequate; Total Cells Counted 100
[2022-03-18] MEDS: ALBUTEROL/IPRATROPIUM 3 ML NEB RESP TX SCH ×3 (07:25→20:05)
[2022-03-18] MEDS: ENOXAPARIN 100 MG/ML SYRINGE SUBCUT SCH ×2 (08:57→22:33)
[2022-03-18] MEDS: PANTOPRAZOLE 40 MG TABLET PO SCH (08:58)
[2022-03-18] MEDS: CETIRIZINE 10 MG TABLET PO SCH (08:58)
[2022-03-18] MEDS: INSULIN LISPRO 100 UNIT/ML SUBCUT SCH ×4 (08:58→22:32)
[2022-03-18] MEDS ORDERED: cefTRIAXone 1,000 MG in SODIUM CHLORIDE 0.9% 100 ML IV SCH (09:00)
[2022-03-18] MEDS: PIPERACILLIN/TAZOBACTAM 3,375 MG in SODIUM CHLORIDE 0.9% 100 ML IV SCH ×2 (12:28→18:13)
[2022-03-18] MEDS ORDERED: guaiFENesin/DM ER 600-30 MG TABLET PO PRN (13:06)
[2022-03-18] MEDS ORDERED: GLUCAGON 1 MG VIAL IM PRN (13:12)
[2022-03-18] MEDS ORDERED: DEXTROSE 50% 25 GM/50 ML VIAL IV PRN (13:12)
[2022-03-18 13:35] LABS: % Iron Saturation 7.6 % (18-50)
[2022-03-18] MEDS: FUROSEMIDE 40 MG/4 ML VIAL IV SCH (15:17)
[2022-03-18] MEDS: methylPREDNISolone SOD SUC 40 MG/1 ML VIAL IV SCH ×2 (15:17→22:33)
[2022-03-18] MEDS: POTASSIUM CHLORIDE 20 MEQ TABLET PO SCH (22:32)
[2022-03-18] MEDS: OMEGA 3 ACID ETHYL ESTERS 1 GM CAPSULE PO SCH (22:32)
[2022-03-18] MEDS: MAGNESIUM OXIDE 400 MG TABLET PO SCH (22:33)
[2022-03-18] MEDS: BUDESONIDE/FORMOTEROL 160-4.5 INHALER 6 GM INH SCH (22:33)
[2022-03-19] MEDS: ALBUTEROL/IPRATROPIUM 3 ML NEB RESP TX SCH ×4 (00:23→19:06)
[2022-03-19] MEDS: AZITHROMYCIN INJ 500 MG in SODIUM CHLORIDE 0.9% 250 ML IV SCH ×2 (00:29→21:54)
[2022-03-19] MEDS: PIPERACILLIN/TAZOBACTAM 3,375 MG in SODIUM CHLORIDE 0.9% 100 ML IV SCH ×3 (01:53→18:27)
[2022-03-19] MEDS ORDERED: VANCOMYCIN INJ 2,000 MG in SODIUM CHLORIDE 0.9% 500 ML IV SCH (03:00)
[2022-03-19] MEDS: methylPREDNISolone SOD SUC 40 MG/1 ML VIAL IV SCH ×3 (06:34→21:53)
[2022-03-19] MEDS: MAGNESIUM OXIDE 400 MG TABLET PO SCH ×2 (08:31→21:49)
[2022-03-19] MEDS: MULTIVITAMIN (BEROCCA) TABLET PO SCH (08:31)
[2022-03-19] MEDS: OMEGA 3 ACID ETHYL ESTERS 1 GM CAPSULE PO SCH (08:31)
[2022-03-19] MEDS: CETIRIZINE 10 MG TABLET PO SCH (08:31)
[2022-03-19] MEDS: POTASSIUM CHLORIDE 20 MEQ TABLET PO SCH ×2 (08:32→21:48)
[2022-03-19] MEDS: PANTOPRAZOLE 40 MG TABLET PO SCH (08:32)
[2022-03-19] MEDS: SPIRONOLACTONE 25 MG TABLET PO SCH (08:32)
[2022-03-19] MEDS: FUROSEMIDE 40 MG/4 ML VIAL IV SCH (08:36)
[2022-03-19] MEDS: BUDESONIDE/FORMOTEROL 160-4.5 INHALER 6 GM INH SCH (08:37)
[2022-03-19] MEDS: INSULIN LISPRO 100 UNIT/ML SUBCUT SCH ×4 (08:39→21:45)
[2022-03-19] MEDS: ENOXAPARIN 100 MG/ML SYRINGE SUBCUT SCH (08:39)
[2022-03-19] MEDS: NEBIVOLOL 5 MG TABLET PO SCH (15:07)
[2022-03-19 20:34] LABS: Folate 9.19 NG/ML (5.38-24.0)
[2022-03-19] MEDS: APIXABAN 5 MG TABLET PO SCH (21:48)
[2022-03-20] MEDS: OMEGA 3 ACID ETHYL ESTERS 1 GM CAPSULE PO SCH ×3 (00:37→21:03)
[2022-03-20] MEDS: BUDESONIDE/FORMOTEROL 160-4.5 INHALER 6 GM INH SCH ×3 (00:38→21:04)
[2022-03-20] MEDS: PIPERACILLIN/TAZOBACTAM 3,375 MG in SODIUM CHLORIDE 0.9% 100 ML IV SCH ×3 (03:57→17:14)
[2022-03-20] MEDS: methylPREDNISolone SOD SUC 40 MG/1 ML VIAL IV SCH ×3 (05:56→22:47)
[2022-03-20 06:48] LABS: Hematocrit 35.5 VOL% (42.0-52.0); Hemoglobin 10.9 GM/DL (14.0-18.0); Immature Granulocytes % 0.5 %; Immature Granulocytes Absolute 0.05 #; Lymphocytes # 0.9 10*3/uL (1.4-4.0); Lymphocytes % 9.3 % (21.2-54.2); Mean Corpuscular HGB Conc 30.7 GM/DL (32-36); Mean Corpuscular Volume 86.8 FL (87-102); Mean Platelet Volume 13.8 FL (9.6-12.0); Monocytes # 0.9 10*3/uL (0.11-0.8); Monocytes % 9.6 % (1.7-12.7); Neutrophils % 80.6 % (38.7-73.9); Platelet Count 142 T/CUMM (130-400); Red Blood Count 4.09 MC/CUMM (3.8-5.5); White Blood Count 9.1 T/CUMM (4-12)
[2022-03-20 07:01] LABS: Calcium 9.3 MG/DL (8.5-10.1); Osmolality,Calculated 292.3 MOS/KG (273-304); Potassium 4.9 MMOL/L (3.5-5.1)
[2022-03-20] MEDS: ALBUTEROL/IPRATROPIUM 3 ML NEB RESP TX SCH ×4 (07:19→19:30)
[2022-03-20] MEDS: INSULIN LISPRO 100 UNIT/ML SUBCUT SCH ×4 (07:29→20:58)
[2022-03-20] MEDS: NEBIVOLOL 5 MG TABLET PO SCH ×2 (08:55→09:20)
[2022-03-20] MEDS: PANTOPRAZOLE 40 MG TABLET PO SCH (09:20)
[2022-03-20] MEDS: MULTIVITAMIN (BEROCCA) TABLET PO SCH (09:20)
[2022-03-20] MEDS: MAGNESIUM OXIDE 400 MG TABLET PO SCH ×2 (09:20→21:03)
[2022-03-20] MEDS: CETIRIZINE 10 MG TABLET PO SCH (09:20)
[2022-03-20] MEDS: APIXABAN 5 MG TABLET PO SCH ×2 (09:20→21:03)
[2022-03-20] MEDS: POTASSIUM CHLORIDE 20 MEQ TABLET PO SCH ×2 (09:20→21:03)
[2022-03-20] MEDS: SPIRONOLACTONE 25 MG TABLET PO SCH (09:20)
[2022-03-20] MEDS: ASCORBIC ACID 500 MG TABLET PO SCH ×2 (17:14→21:03)
[2022-03-20] MEDS: AZITHROMYCIN INJ 500 MG in SODIUM CHLORIDE 0.9% 250 ML IV SCH (22:36)
[2022-03-21] MEDS: PIPERACILLIN/TAZOBACTAM 3,375 MG in SODIUM CHLORIDE 0.9% 100 ML IV SCH ×3 (04:04→20:51)
[2022-03-21 04:11] LABS: Basophils % 0.1 % (0.0-0.8); Eosinophils % 0.1 % (0.00-10.9); Hemoglobin 11.2 GM/DL (14.0-18.0); Immature Granulocytes % 2.3 %; Immature Granulocytes Absolute 0.26 #; Lymphocytes # 1.5 10*3/uL (1.4-4.0); Lymphocytes % 13.4 % (21.2-54.2); Mean Corpuscular HGB Conc 31.1 GM/DL (32-36); Mean Corpuscular Volume 86.5 FL (87-102); Monocytes % 17.4 % (1.7-12.7); NRBC # 0.03 10*3/uL; Neutrophils % 66.7 % (38.7-73.9); Platelet Count 151 T/CUMM (130-400); Red Blood Count 4.16 MC/CUMM (3.8-5.5); Red Cell Distribution Width 14.2 % (9.3-17.3); White Blood Count 11.4 T/CUMM (4-12)
[2022-03-21 04:25] LABS: Calcium 9.4 MG/DL (8.5-10.1); Osmolality,Calculated 287.3 MOS/KG (273-304)
[2022-03-21 05:07] LABS: Band Neutrophils 1 % (0-10); Lymphocytes 20 % (20-55); Total Cells Counted 100
[2022-03-21 05:08] LABS: Hypochromia Slight; Microcytosis Slight; Platelet Estimate Adequate
[2022-03-21] MEDS: methylPREDNISolone SOD SUC 40 MG/1 ML VIAL IV SCH ×3 (05:20→20:50)
[2022-03-21] MEDS: ALBUTEROL/IPRATROPIUM 3 ML NEB RESP TX SCH ×4 (07:35→20:10)
[2022-03-21] MEDS: INSULIN LISPRO 100 UNIT/ML SUBCUT SCH ×4 (08:28→22:05)
[2022-03-21] MEDS: MULTIVITAMIN (BEROCCA) TABLET PO SCH (09:29)
[2022-03-21] MEDS: SPIRONOLACTONE 25 MG TABLET PO SCH (09:30)
[2022-03-21] MEDS: NEBIVOLOL 5 MG TABLET PO SCH (09:30)
[2022-03-21] MEDS: ASCORBIC ACID 500 MG TABLET PO SCH ×2 (09:30→20:45)
[2022-03-21] MEDS: MAGNESIUM OXIDE 400 MG TABLET PO SCH ×2 (09:30→20:45)
[2022-03-21] MEDS: PANTOPRAZOLE 40 MG TABLET PO SCH (09:30)
[2022-03-21] MEDS: OMEGA 3 ACID ETHYL ESTERS 1 GM CAPSULE PO SCH ×2 (09:30→20:46)
[2022-03-21] MEDS: CETIRIZINE 10 MG TABLET PO SCH (09:30)
[2022-03-21] MEDS: BUDESONIDE/FORMOTEROL 160-4.5 INHALER 6 GM INH SCH ×2 (09:32→22:05)
[2022-03-21] MEDS: POTASSIUM CHLORIDE 20 MEQ TABLET PO SCH ×3 (09:37→20:45)
[2022-03-21] MEDS: APIXABAN 5 MG TABLET PO SCH (09:44)
[2022-03-22] MEDS: ALBUTEROL/IPRATROPIUM 3 ML NEB RESP TX SCH ×4 (00:22→19:31)
[2022-03-22] MEDS: AZITHROMYCIN INJ 500 MG in SODIUM CHLORIDE 0.9% 250 ML IV SCH (00:25)
[2022-03-22] MEDS: PIPERACILLIN/TAZOBACTAM 3,375 MG in SODIUM CHLORIDE 0.9% 100 ML IV SCH ×3 (03:25→20:00)
[2022-03-22] MEDS: methylPREDNISolone SOD SUC 40 MG/1 ML VIAL IV SCH ×2 (05:07→13:15)
[2022-03-22 05:47] LABS: Basophils % 0.3 % (0.0-0.8); Hematocrit 35.4 VOL% (42.0-52.0); Hemoglobin 10.6 GM/DL (14.0-18.0); Immature Granulocytes % 6.9 %; Immature Granulocytes Absolute 0.76 #; Lymphocytes # 1.7 10*3/uL (1.4-4.0); Lymphocytes % 15.8 % (21.2-54.2); Mean Corpuscular HGB Conc 29.9 GM/DL (32-36); Mean Corpuscular Volume 91.5 FL (87-102); Mean Platelet Volume 13.3 FL (9.6-12.0); Monocytes # 1.1 10*3/uL (0.11-0.8); Monocytes % 10.1 % (1.7-12.7); NRBC # 0.02 10*3/uL; Neutrophils % 66.9 % (38.7-73.9); Platelet Count 154 T/CUMM (130-400); Red Blood Count 3.87 MC/CUMM (3.8-5.5); Red Cell Distribution Width 14.3 % (9.3-17.3)
[2022-03-22 05:55] LABS: Calcium 9.4 MG/DL (8.5-10.1); Osmolality,Calculated 290.3 MOS/KG (273-304); Potassium 5.6 MMOL/L (3.5-5.1)
[2022-03-22 06:20] LABS: Lymphocytes 12 % (20-55); Platelet Estimate Adequate; Total Cells Counted 100
[2022-03-22] MEDS: MULTIVITAMIN (BEROCCA) TABLET PO SCH (08:27)
[2022-03-22] MEDS: MAGNESIUM OXIDE 400 MG TABLET PO SCH ×2 (08:27→20:46)
[2022-03-22] MEDS: CETIRIZINE 10 MG TABLET PO SCH (08:27)
[2022-03-22] MEDS: ASCORBIC ACID 500 MG TABLET PO SCH ×2 (08:27→20:46)
[2022-03-22] MEDS: SPIRONOLACTONE 25 MG TABLET PO SCH (08:27)
[2022-03-22] MEDS: PANTOPRAZOLE 40 MG TABLET PO SCH (08:28)
[2022-03-22] MEDS: OMEGA 3 ACID ETHYL ESTERS 1 GM CAPSULE PO SCH ×2 (08:28→20:46)
[2022-03-22] MEDS: NEBIVOLOL 5 MG TABLET PO SCH (08:28)
[2022-03-22] MEDS: BUDESONIDE/FORMOTEROL 160-4.5 INHALER 6 GM INH SCH ×2 (08:29→20:46)
[2022-03-22] MEDS ORDERED: SODIUM ZIRCONIUM CYCLOSILICATE 10 GM PACK PO ONE (09:10)
[2022-03-22] MEDS: INSULIN LISPRO 100 UNIT/ML SUBCUT SCH ×4 (09:53→20:43)
[2022-03-22 14:25] LABS: Mycoplasma pneumoniae Ab Inter SEE COMMENTS; Mycoplasma pneumoniae Ab, IgG Positive (Negative); Mycoplasma pneumoniae Ab, IgM Negative (Negative)
[2022-03-23] MEDS: ALBUTEROL/IPRATROPIUM 3 ML NEB RESP TX SCH ×3 (00:30→13:05)
[2022-03-23] MEDS: PIPERACILLIN/TAZOBACTAM 3,375 MG in SODIUM CHLORIDE 0.9% 100 ML IV SCH ×2 (03:14→12:00)
[2022-03-23 06:02] LABS: Calcium 9.6 MG/DL (8.5-10.1); Osmolality,Calculated 286.3 MOS/KG (273-304); Potassium 4.5 MMOL/L (3.5-5.1)
[2022-03-23 06:12] LABS: Basophils % 0.2 % (0.0-0.8); Eosinophils # 0.1 10*3/uL (0.0-0.87); Eosinophils % 0.5 % (0.00-10.9); Hematocrit 34.8 VOL% (42.0-52.0); Hemoglobin 10.4 GM/DL (14.0-18.0); Immature Granulocytes % 8.1 %; Lymphocytes # 2.3 10*3/uL (1.4-4.0); Lymphocytes % 18.4 % (21.2-54.2); Mean Corpuscular HGB Conc 29.9 GM/DL (32-36); Mean Corpuscular Volume 89.2 FL (87-102); Mean Platelet Volume 12.9 FL (9.6-12.0); Monocytes # 1.1 10*3/uL (0.11-0.8); NRBC # 0.06 10*3/uL; Neutrophils % 63.8 % (38.7-73.9); Platelet Count 168 T/CUMM (130-400); Red Cell Distribution Width 14.3 % (9.3-17.3); White Blood Count 12.4 T/CUMM (4-12)
[2022-03-23 06:19] LABS: Eosinophils 1 % (0-10); Lymphocytes 21 % (20-55); Platelet Estimate Normal; Total Cells Counted 100
[2022-03-23] MEDS ORDERED: predniSONE 20 MG TABLET PO SCH (09:00)
[2022-03-23] MEDS: MULTIVITAMIN (BEROCCA) TABLET PO SCH (09:07)
[2022-03-23] MEDS: INSULIN LISPRO 100 UNIT/ML SUBCUT SCH ×2 (09:07→12:15)
[2022-03-23] MEDS: CETIRIZINE 10 MG TABLET PO SCH (09:08)
[2022-03-23] MEDS: ASCORBIC ACID 500 MG TABLET PO SCH (09:08)
[2022-03-23] MEDS: PANTOPRAZOLE 40 MG TABLET PO SCH (09:08)
[2022-03-23] MEDS: BUDESONIDE/FORMOTEROL 160-4.5 INHALER 6 GM INH SCH (09:08)
[2022-03-23] MEDS: MAGNESIUM OXIDE 400 MG TABLET PO SCH (09:08)
[2022-03-23] MEDS: OMEGA 3 ACID ETHYL ESTERS 1 GM CAPSULE PO SCH (09:08)
[2022-03-23 11:46] VITALS: BP 146/80
== END 2022-03-23 14:09 | disposition home health service (06) | DRG 871 ==
LOC: N.ED 18:15 → SUATTDRO 22:09 → N.3E 22:09
PROVIDERS: ADMIT Internal Medicine; ATTEND Emergency Medicine

== ENCOUNTER 2022-07-31 16:33 | Inpatient (IN) ==
[2022-07-31 17:34] LABS: Basophils # 0.1 10*3/uL (0.0-0.2); Basophils % 0.2 % (0.0-0.8); Hematocrit 40.8 VOL% (42.0-52.0); Hemoglobin 12.4 GM/DL (14.0-18.0); Immature Granulocytes % 1.3 %; Immature Granulocytes Absolute 0.42 #; Lymphocytes # 0.9 10*3/uL (1.4-4.0); Lymphocytes % 2.9 % (21.2-54.2); Mean Corpuscular HGB Conc 30.4 GM/DL (32-36); Mean Platelet Volume 11.9 FL (9.6-12.0); Monocytes # 3.1 10*3/uL (0.11-0.8); Monocytes % 9.9 % (1.7-12.7); Neutrophils % 85.7 % (38.7-73.9); Platelet Count 164 T/CUMM (130-400); Red Blood Count 4.69 MC/CUMM (3.8-5.5); Red Cell Distribution Width 14.6 % (9.3-17.3); White Blood Count 31.2 T/CUMM (4-12)
[2022-07-31 17:46] LABS: INR 1.2; Partial Thromboplastin Time 29.9 SECS (23.7-32.9)
[2022-07-31 17:51] LABS: Albumin 3.6 G/DL (3.4-5.0); Calcium 9.2 MG/DL (8.5-10.1); Osmolality,Calculated 282.7 MOS/KG (273-304); Potassium 4.3 MMOL/L (3.5-5.1); Total Protein 8.8 G/DL (6.4-8.2)
[2022-07-31 19:55] LABS: Band Neutrophils 2 % (0-10); Lymphocytes 7 % (20-55); Platelet Estimate Normal; Total Cells Counted 100
[2022-07-31 19:56] LABS: Hypochromia Slight
[2022-07-31 21:05] LABS: Bilirubin,Urine Negative (Negative); Blood, Urine Trace mg/dL (Negative); Glucose,Urine (UA) Negative (Negative); Ketones,Urine Negative (Negative); Nitrite,Urine Negative (Negative); Protein,Urine 30 mg/dL (Negative); RBC,Urine 1 /HPF (0-4); Squamous Epithelial Cell,Urine Occasional /HPF (0-10); Urine Appearance Clear (Clear); Urine Color Yellow (Yellow); Urine Urobilinogen 0.2 eU/dL (<2.0); Urine pH 5.5 (4.5-8.0)
[2022-07-31] MEDS ORDERED: ONDANSETRON 4 MG/2 ML VIAL IV STA (21:27)
[2022-07-31] MEDS ORDERED: FUROSEMIDE 100 MG/10 ML VIAL IV STA (21:27)
[2022-07-31] MEDS ORDERED: ENOXAPARIN 100 MG/ML SYRINGE SUBCUT STA (21:27)
[2022-07-31] MEDS ORDERED: NITROGLYCERIN 2% OINT 1 INCH/GM PACK TOP STA (21:27)
[2022-07-31] MEDS ORDERED: MORPHINE 2 MG/1 ML SYRINGE IV STA (21:27)
[2022-07-31] MEDS ORDERED: ALBUTEROL/IPRATROPIUM 3 ML NEB RESP TX STA (21:27)
[2022-07-31] MEDS ORDERED: methylPREDNISolone SOD SUC 125 MG/2 ML VIAL IV STA (21:27)
[2022-07-31] MEDS ORDERED: PIPERACILLIN/TAZOBACTAM 3,375 MG in SODIUM CHLORIDE 0.9% 100 ML IV STA (21:58)
[2022-07-31] MEDS ORDERED: ALBUTEROL NEB SOLN 5 MG/ML 20 ML/BOTTLE CONT NEB SCH (22:00)
[2022-08-01] MEDS ORDERED: SODIUM CHLORIDE 0.9% IV ONE (00:42)
[2022-08-01] MEDS: ALBUTEROL/IPRATROPIUM 3 ML NEB RESP TX SCH ×6 (00:42→23:01)
[2022-08-01] MEDS ORDERED: VANCOMYCIN IV ONE (00:42)
[2022-08-01] MEDS ORDERED: PROMETHAZINE 25 MG/1 ML VIAL IM PRN (00:43)
[2022-08-01] MEDS ORDERED: guaiFENesin/DM ER 600-30 MG TABLET PO PRN (00:43)
[2022-08-01] MEDS ORDERED: hydrALAZINE 20 MG/1 ML VIAL IV PRN (00:43)
[2022-08-01] MEDS ORDERED: ZALEPLON 5 MG CAPSULE PO PRN (00:43)
[2022-08-01] MEDS ORDERED: MORPHINE 2 MG/1 ML SYRINGE IV PRN (00:43)
[2022-08-01] MEDS ORDERED: diphenhydrAMINE CAP 25 MG CAPSULE PO PRN (00:43)
[2022-08-01] MEDS ORDERED: ONDANSETRON 4 MG/2 ML VIAL IV PRN (00:43)
[2022-08-01] MEDS ORDERED: NICOTINE 21 MG/24 HR PATCH TRANSDERM PRN (00:43)
[2022-08-01] MEDS ORDERED: ACETAMINOPHEN 325 MG TABLET PO PRN (00:43)
[2022-08-01 00:47] LABS: Arterial Base Excess iSTAT 2 MMOL/L (-2.5-2.5); Arterial Bicarbonate iSTAT 27.8 MMOL/L (20-26); Arterial O2 Saturation iSTAT 95 % (95-100); Arterial PCO2 iSTAT 45 MM HG (35-48); Arterial PO2 iSTAT 74 MM HG (80-95); Arterial Total CO2 iSTAT 29 MMO/L (23-27); Arterial pH iSTAT 7.402 (7.35-7.45)
[2022-08-01] MEDS ORDERED: SODIUM CHLORIDE 0.9% 2,000 ML IV STA (01:08)
[2022-08-01] MEDS: methylPREDNISolone SOD SUC 125 MG/2 ML VIAL IV SCH ×4 (02:30→20:32)
[2022-08-01] MEDS: AZITHROMYCIN INJ 500 MG in SODIUM CHLORIDE 0.9% 250 ML IV SCH (02:32)
[2022-08-01] MEDS: VANCOMYCIN INJ 1,750 MG in SODIUM CHLORIDE 0.9% 500 ML IV SCH ×2 (03:50→20:32)
[2022-08-01 04:52] LABS: Basophils % 0.1 % (0.0-0.8); Hematocrit 38.7 VOL% (42.0-52.0); Hemoglobin 11.8 GM/DL (14.0-18.0); Immature Granulocytes % 5.9 %; Immature Granulocytes Absolute 1.41 #; Lymphocytes # 0.9 10*3/uL (1.4-4.0); Lymphocytes % 3.9 % (21.2-54.2); Mean Corpuscular HGB Conc 30.5 GM/DL (32-36); Mean Corpuscular Volume 88.4 FL (87-102); Mean Platelet Volume 11.8 FL (9.6-12.0); Monocytes # 1.2 10*3/uL (0.11-0.8); Monocytes % 4.9 % (1.7-12.7); Neutrophils % 85.2 % (38.7-73.9); Platelet Count 130 T/CUMM (130-400); Red Blood Count 4.38 MC/CUMM (3.8-5.5); Red Cell Distribution Width 14.5 % (9.3-17.3)
[2022-08-01 05:08] LABS: Albumin 2.9 G/DL (3.4-5.0); Bilirubin,Total 1.7 MG/DL (0.20-1.00); Calcium 8.8 MG/DL (8.5-10.1); Osmolality,Calculated 290.3 MOS/KG (273-304); Potassium 4.6 MMOL/L (3.5-5.1); Total Protein 8.1 G/DL (6.4-8.2)
[2022-08-01 05:10] LABS: Hypochromia Slight; Lymphocytes 3 % (20-55); Microcytosis Slight; Platelet Estimate Normal; Total Cells Counted 100
[2022-08-01 07:01] LABS: Arterial Base Excess iSTAT 0 MMOL/L (-2.5-2.5); Arterial Bicarbonate iSTAT 26.1 MMOL/L (20-26); Arterial O2 Saturation iSTAT 94 % (95-100); Arterial PCO2 iSTAT 49 MM HG (35-48); Arterial PO2 iSTAT 74 MM HG (80-95); Arterial Total CO2 iSTAT 28 MMO/L (23-27); Arterial pH iSTAT 7.339 (7.35-7.45)
[2022-08-01] MEDS: INSULIN LISPRO 100 UNIT/ML SUBCUT SCH ×4 (07:30→20:47)
[2022-08-01] MEDS: PIPERACILLIN/TAZOBACTAM 3,375 MG in SODIUM CHLORIDE 0.9% 100 ML IV SCH ×2 (10:13→16:02)
[2022-08-01] MEDS: DOCUSATE SODIUM 100 MG CAPSULE PO SCH ×2 (10:14→20:47)
[2022-08-01] MEDS: PANTOPRAZOLE 40 MG TABLET PO SCH (10:14)
[2022-08-02] MEDS: AZITHROMYCIN INJ 500 MG in SODIUM CHLORIDE 0.9% 250 ML IV SCH (01:19)
[2022-08-02] MEDS: ALBUTEROL/IPRATROPIUM 3 ML NEB RESP TX SCH ×6 (02:55→22:00)
[2022-08-02] MEDS: PIPERACILLIN/TAZOBACTAM 3,375 MG in SODIUM CHLORIDE 0.9% 100 ML IV SCH ×3 (02:59→16:11)
[2022-08-02] MEDS: methylPREDNISolone SOD SUC 125 MG/2 ML VIAL IV SCH ×5 (02:59→21:39)
[2022-08-02 05:17] LABS: Basophils % 0.1 % (0.0-0.8); Hemoglobin 11.2 GM/DL (14.0-18.0); Immature Granulocytes % 1.4 %; Immature Granulocytes Absolute 0.26 #; Lymphocytes # 0.8 10*3/uL (1.4-4.0); Mean Corpuscular HGB Conc 30.3 GM/DL (32-36); Mean Corpuscular Volume 88.3 FL (87-102); Mean Platelet Volume 12.2 FL (9.6-12.0); Monocytes # 1.3 10*3/uL (0.11-0.8); Monocytes % 6.8 % (1.7-12.7); Neutrophils % 87.7 % (38.7-73.9); Platelet Count 124 T/CUMM (130-400); Red Blood Count 4.19 MC/CUMM (3.8-5.5); Red Cell Distribution Width 14.5 % (9.3-17.3); White Blood Count 18.7 T/CUMM (4-12)
[2022-08-02 05:43] LABS: Band Neutrophils 2 % (0-10); Hypochromia 1+; Lymphocytes 3 % (20-55); Target Cells Slight; Total Cells Counted 100
[2022-08-02 05:44] LABS: Microcytosis Slight; Platelet Estimate Adequate; Polychromasia Slight
[2022-08-02 05:49] LABS: Calcium 9.2 MG/DL (8.5-10.1); Osmolality,Calculated 294.3 MOS/KG (273-304); Potassium 4.4 MMOL/L (3.5-5.1)
[2022-08-02] MEDS: INSULIN LISPRO 100 UNIT/ML SUBCUT SCH ×4 (08:04→21:22)
[2022-08-02] MEDS: PANTOPRAZOLE 40 MG TABLET PO SCH (09:03)
[2022-08-02] MEDS: DOCUSATE SODIUM 100 MG CAPSULE PO SCH ×2 (09:03→21:39)
[2022-08-03] MEDS: PIPERACILLIN/TAZOBACTAM 3,375 MG in SODIUM CHLORIDE 0.9% 100 ML IV SCH ×3 (03:19→17:50)
[2022-08-03] MEDS: ALBUTEROL/IPRATROPIUM 3 ML NEB RESP TX SCH ×6 (03:35→22:55)
[2022-08-03] MEDS: methylPREDNISolone SOD SUC 125 MG/2 ML VIAL IV SCH (03:48)
[2022-08-03 08:03] LABS: Hematocrit 36.5 VOL% (42.0-52.0); Hemoglobin 11.2 GM/DL (14.0-18.0); Immature Granulocytes % 0.7 %; Immature Granulocytes Absolute 0.08 #; Lymphocytes # 0.5 10*3/uL (1.4-4.0); Lymphocytes % 4.6 % (21.2-54.2); Mean Corpuscular HGB Conc 30.7 GM/DL (32-36); Mean Platelet Volume 12.9 FL (9.6-12.0); Monocytes # 0.6 10*3/uL (0.11-0.8); Monocytes % 5.8 % (1.7-12.7); Neutrophils % 88.9 % (38.7-73.9); Platelet Count 142 T/CUMM (130-400); Red Blood Count 4.15 MC/CUMM (3.8-5.5); Red Cell Distribution Width 14.5 % (9.3-17.3); White Blood Count 10.8 T/CUMM (4-12)
[2022-08-03 08:25] LABS: Calcium 9.1 MG/DL (8.5-10.1); Potassium 4.3 MMOL/L (3.5-5.1)
[2022-08-03 08:31] LABS: Anisocytosis 1+; Band Neutrophils 7 % (0-10); Lymphocytes 7 % (20-55); Ovalocytes Few; Platelet Estimate Adequate; Total Cells Counted 100
[2022-08-03] MEDS ORDERED: AZITHROMYCIN 250 MG TABLET PO SCH (09:00)
[2022-08-03] MEDS: INSULIN LISPRO 100 UNIT/ML SUBCUT SCH ×4 (09:24→21:46)
[2022-08-03] MEDS: PANTOPRAZOLE 40 MG TABLET PO SCH (10:04)
[2022-08-03] MEDS: DOCUSATE SODIUM 100 MG CAPSULE PO SCH ×2 (10:04→21:46)
[2022-08-03] MEDS: methylPREDNISolone SOD SUC 40 MG/1 ML VIAL IV SCH ×3 (10:04→21:47)
[2022-08-04] MEDS: methylPREDNISolone SOD SUC 40 MG/1 ML VIAL IV SCH ×3 (02:00→14:19)
[2022-08-04] MEDS: PIPERACILLIN/TAZOBACTAM 3,375 MG in SODIUM CHLORIDE 0.9% 100 ML IV SCH ×2 (02:00→10:05)
[2022-08-04] MEDS: ALBUTEROL/IPRATROPIUM 3 ML NEB RESP TX SCH ×4 (04:26→14:39)
[2022-08-04] MEDS: INSULIN LISPRO 100 UNIT/ML SUBCUT SCH ×2 (07:30→11:30)
[2022-08-04 07:32] LABS: Calcium 9.1 MG/DL (8.5-10.1); Potassium 4.2 MMOL/L (3.5-5.1)
[2022-08-04 08:00] LABS: Basophils % 0.2 % (0.0-0.8); Hematocrit 36.3 VOL% (42.0-52.0); Hemoglobin 11.1 GM/DL (14.0-18.0); Immature Granulocytes % 1.3 %; Immature Granulocytes Absolute 0.08 #; Lymphocytes # 0.6 10*3/uL (1.4-4.0); Lymphocytes % 9.9 % (21.2-54.2); Mean Corpuscular HGB Conc 30.6 GM/DL (32-36); Mean Platelet Volume 12.1 FL (9.6-12.0); Monocytes # 0.6 10*3/uL (0.11-0.8); Monocytes % 9.4 % (1.7-12.7); Neutrophils % 79.2 % (38.7-73.9); Platelet Count 143 T/CUMM (130-400); Red Blood Count 4.22 MC/CUMM (3.8-5.5); Red Cell Distribution Width 14.6 % (9.3-17.3); White Blood Count 6.3 T/CUMM (4-12)
[2022-08-04] MEDS: PANTOPRAZOLE 40 MG TABLET PO SCH (10:05)
[2022-08-04] MEDS: DOCUSATE SODIUM 100 MG CAPSULE PO SCH (13:30)
[2022-08-04 17:14] VITALS: BP 159/88
== END 2022-08-04 16:20 | disposition home or self-care (01) | DRG 193 ==
LOC: N.ED 16:33 → N.EDINP 08-01 00:43 → N.2E 08-01 04:36
PROVIDERS: ADMIT Family Medicine; ATTEND Family Medicine